=== PATIENT | female | born 1935 | race Caucasian/White ===

== ENCOUNTER 2017-11-24 19:01 | Inpatient (IN) | payer MEDICARE, OTHER ==
[~2017-11-24] VITALS: Ht 157.5 cm; Wt 59.3 kg
[2017-11-24] MEDS: SODIUM CHLOR 0.9% 1000 ML INJ 1,000 ML IV SCH (01:00)
[2017-11-24 19:12] VITALS: BP 135/62; PULSE 93; RESP 20; O2SAT 94
--- NOTE | 2017-11-24 19:52 | PD ---
HPI Chief Complaint: Fever Time Seen by Provider: 19:19 Travel History International Travel<30 days: No Contact w/Intl Traveler<30days: No Traveled to known affect area: No History of Present Illness HPI Patient is an 82-year-old female coming from a [facility] WITH PMH of HTN, DM and Dementia .. . she's been having weakness tiredness fever and cough for the last few days. Patient is a good historian reports feeling not well for the last 5 days. She says she has a sore throat feels her throat is very dry she's had a mild cough. PFSH Past Medical History Cardiovascular Problems: Yes Diabetes: Yes Respiratory: Yes Social History Tobacco Use: No Substance Use: No Allergies-Medications (Allergen,Severity, Reaction): Coded Allergies: No Known Allergies (Verified Allergy, Unknown, 11/24/17) Reported Meds & Prescriptions Reported Meds & Active Scripts Active Reported Tramadol (Tramadol HCl) 50 Mg Tab 50 Mg PO Q4H PRN Cough Syrup (Guaifenesin) 100 Mg/5 Ml Liquid Nitroglycerin SL (Nitroglycerin) 0.4 Mg Subl 0.4 Mg SL DIRECTED PRN ONE TABLET UNDER THE TONGUE NEEDED FOR CHEST PAIN, MAY REPEAT EVERY FIVE MINUTES FOR A TOTAL OF 3 DOSES OR CALL 911 IF NO RELIEF Tylenol (Acetaminophen) 325 Mg Tab 325 Mg PO Q4H PRN Gabapentin 300 Mg Cap 300 Mg PO BID Lantus Inj (Insulin Glargine) 1,000 Unit/10 Ml Vial 26 Units SQ HS Lovastatin 10 Mg Tab 10 Mg PO DAILY Plavix (Clopidogrel Bisulfate) 75 Mg Tab 75 Mg PO DAILY Sertraline (Sertraline HCl) 50 Mg Tab 50 Mg PO DAILY Furosemide 20 Mg Tab 20 Mg PO DAILY Potassium Chloride ER (Potassium Chloride) 10 Meq Tab 10 Meq PO DAILY Omeprazole 20 Mg Tab 20 Mg PO DAILY Review of Systems Except as stated in HPI: all other systems reviewed are Neg General / Constitutional: Positive: Fever Musculoskeletal: Positive: Weakness (GENERALIZED WEAKNESS FEVER LISTLESS) Physical Exam Narrative GENERAL: AWAKE ALERT APPEARS TO BE A GOOD HISTORIAN SKIN: Warm and dry. HEAD: Atraumatic. Normocephalic. EYES: Pupils equal and round. No scleral icterus. No injection or drainage. ENT: No nasal bleeding or discharge. Mucous membranes pink and moist. NECK: Trachea midline. No JVD. CARDIOVASCULAR: Regular rate and rhythm. RESPIRATORY: No accessory muscle use. DECREASED BREATH SOUND IN RIGHT LOWER LUNG AND BASIALR CRACKLES GASTROINTESTINAL: Abdomen soft, non-tender, nondistended. Hepatic and splenic margins not palpable. MUSCULOSKELETAL: Extremities without clubbing, cyanosis, or edema. No obvious deformities. NEUROLOGICAL: Awake and alert. No obvious cranial nerve deficits. Motor grossly within normal limits. Five out of 5 muscle strength in the arms and legs. Normal speech. PSYCHIATRIC: Appropriate mood and affect; insight and judgment normal. Data Data Last Documented VS Vital Signs Date Time Temp Pulse Resp B/P (MAP) Pulse Ox O2 Delivery O2 Flow Rate FiO2 11/24/17 20:12 93 Nasal Cannula 3.00 11/24/17 20:12 92 20 135/62 (86) Orders Orders Complete Blood Count With Diff (11/24/17 19:19) Comprehensive Metabolic Panel (11/24/17 19:19) Ckmb (Isoenzyme) Profile (11/24/17 19:19) Troponin I (11/24/17 19:19) Lipase (11/24/17 19:19) Chest, Pa & Lat (11/24/17 19:19) Vancomycin Inj (Vancomycin Inj) (11/24/17 20:15) Piperacil-Tazo 3.375 Gm Premix (Zosyn 3. (11/24/17 20:15) Albuterol-Ipratropium Neb (Duoneb Neb) (11/24/17 20:15) Sodium Chlor 0.9% 1000 Ml Inj (Ns 1000 M (11/24/17 20:15) Influenzae A/B Antigen (11/24/17 20:40) Aspirin Chew (Aspirin Chew) (11/24/17 21:45) Nitroglycerin 2% Oint (Nitroglycerin 2% (11/24/17 21:45) Heparin Inj (Heparin Inj) (11/24/17 21:45) Heparin Inj (Heparin Inj) (11/25/17 03:45) Heparin Inj (Heparin Inj) (11/25/17 03:45) Heparin-D5w 25,000 U/250 Ml (Heparin-D5w (11/24/17 21:45) Act Partial Throm Time (Ptt) (11/24/17 21:39) Prothrombin Time / Inr (Pt) (11/24/17 21:39) Act Partial Throm Time (Ptt) (11/25/17 04:39) Occult Blood (Hemoccult) Stool (11/24/17 21:39) Admit Order (Ed Use Only) (11/24/17 ) Labs Laboratory Tests Test 11/24/17 19:30 11/24/17 21:30 White Blood Count 23.6 TH/MM3 Red Blood Count 4.16 MIL/MM3 Hemoglobin 13.0 GM/DL Hematocrit 38.3 % Mean Corpuscular Volume 92.1 FL Mean Corpuscular Hemoglobin 31.2 PG Mean Corpuscular Hemoglobin Concent 33.9 % Red Cell Distribution Width 14.2 % Platelet Count 528 TH/MM3 Mean Platelet Volume 7.7 FL Neutrophils (%) (Auto) 83.7 % Lymphocytes (%) (Auto) 9.2 % Monocytes (%) (Auto) 6.9 % Eosinophils (%) (Auto) 0.0 % Basophils (%) (Auto) 0.2 % Neutrophils # (Auto) 19.8 TH/MM3 Lymphocytes # (Auto) 2.2 TH/MM3 Monocytes # (Auto) 1.6 TH/MM3 Eosinophils # (Auto) 0.0 TH/MM3 Basophils # (Auto) 0.0 TH/MM3 CBC Comment DIFF FINAL Differential Comment Blood Urea Nitrogen 12 MG/DL Creatinine 0.81 MG/DL Random Glucose 116 MG/DL Total Protein 6.8 GM/DL Albumin 2.2 GM/DL Calcium Level 8.3 MG/DL Alkaline Phosphatase 111 U/L Aspartate Amino Transf (AST/SGOT) 9 U/L Alanine Aminotransferase (ALT/SGPT) 11 U/L Total Bilirubin 0.7 MG/DL Sodium Level 129 MEQ/L Potassium Level 3.5 MEQ/L Chloride Level 91 MEQ/L Carbon Dioxide Level 27.2 MEQ/L Anion Gap 11 MEQ/L Estimat Glomerular Filtration Rate 68 ML/MIN Total Creatine Kinase 40 U/L Troponin I 0.25 NG/ML Lipase 64 U/L Prothrombin Time 11.8 SEC Prothromb Time International Ratio 1.2 RATIO Activated Partial Thromboplast Time 33.2 SEC MDM Medical Decision Making Medical Screen Exam Complete: Yes Emergency Medical Condition: Yes Differential Diagnosis FEVER FUO, SEPSIS OF VIRAL ILLNESS VS SEPSIS FROM PNA OR UTI , OTHER Narrative Course FLUID RESUSITATION INITIATED TYLENOL AND CXRAY LARGE RIGHT RML AND RLL PNA VANCO ZOSYN, THEN TROP RETURNS ELEVATED AND SHE IS GIVEN ASA AND NITRO AND ADMITTED TO MEDICAL SERVICE TELE , FOR SEPSIS DE NON STEMI AND PNA Diagnosis Primary Impression: NSTEMI (non-ST elevated myocardial infarction) Additional Impression: PNA (pneumonia) Qualified Codes: J18.1 - Lobar pneumonia, unspecified organism Joe Carty MD Nov 24, 2017 19:52
--- NOTE | 2017-11-24 20:06 | RADRPT ---
EXAM DATE/TIME: 11/24/2017 19:40 [facility] COMPARISON: No previous studies available for comparison. INDICATIONS : Fever. MEDICAL HISTORY : None. SURGICAL HISTORY : None. ENCOUNTER: Initial ACUITY: 3 days PAIN SCORE: 0/10 LOCATION: Bilateral chest FINDINGS: There is patchy infiltrates involving the right lung base. The left lung is grossly clear. The heart size is within normal limits. No definite pleural effusions. There is elevation of the right hemidiap hragm. There is an old healed right-sided rib fractures. CONCLUSION: Patchy diffuse infiltrate involving the right mid to right lower lung. This is suggestive of pneumoni a. Bernard Serrano MD on November 24, 2017 at 20:04 Board Certified Radiologist. This report was verified electronically.
[2017-11-24 20:12] VITALS: BP 135/62; PULSE 92; RESP 20; O2SAT 93
[2017-11-24] MEDS ORDERED: SODIUM CHLOR 0.9% 1000 ML INJ 1,000 ML IV ONE (20:15)
[2017-11-24] MEDS ORDERED: RESP: ALBUTEROL 2.5 MG/IPRATROPIUM 0.5 MG NEB (SCH) NEB ONE (20:15)
[2017-11-24] MEDS ORDERED: VANCOMYCIN INJ 1,000 MG in SODIUM CHLOR 0.9% 250 ML INJ 250 ML IV ONE (20:15)
[2017-11-24] MEDS ORDERED: PIPERACIL-TAZO 3.375 GM PREMIX 50 ML IV ONE (20:15)
[2017-11-24 21:02] LABS: AUTOMATED NEUTROPHIL # 19.8 TH/MM3 (1.8-7.7); BASOPHIL % 0.2 % (0.0-2.0); HEMATOCRIT 38.3 % (35.0-46.0); LYMPH % 9.2 % (9.0-44.0); LYMPHOCYTE # 2.2 TH/MM3 (1.0-4.8); MEAN CELL VOLUME 92.1 FL (80.0-100.0); MEAN CORPUSCULAR HEMOGLOBIN 31.2 PG (27.0-34.0); MEAN CORPUSCULAR HGB CONC 33.9 % (32.0-36.0); MEAN PLATELET VOLUME 7.7 FL (7.0-11.0); MONO % 6.9 % (0.0-8.0); MONOCYTE # 1.6 TH/MM3 (0-0.9); NEUT % 83.7 % (16.0-70.0); PLATELET COUNT 528 TH/MM3 (150-450); RED BLOOD COUNT 4.16 MIL/MM3 (4.00-5.30); RED CELL DISTRIBUTION WIDTH 14.2 % (11.6-17.2); WHITE BLOOD COUNT 23.6 TH/MM3 (4.0-11.0)
[2017-11-24 21:19] LABS: ALBUMIN 2.2 GM/DL (3.4-5.0); AST (GOT) 9 U/L (15-37); BICARBONATE 27.2 MEQ/L (21.0-32.0); BLOOD UREA NITROGEN 12 MG/DL (7-18); CALCIUM 8.3 MG/DL (8.5-10.1); CHLORIDE 91 MEQ/L (98-107); CREATININE 0.81 MG/DL (0.50-1.00); GLOMERULAR FILTRATION RATE 68 ML/MIN (>89); GLUCOSE,RANDOM 116 MG/DL (74-106); SODIUM (NA) 129 MEQ/L (136-145)
[2017-11-24 21:24] LABS: ALKALINE PHOSPHATASE 111 U/L (45-117); ALT (GPT) 11 U/L (10-53); TOTAL BILIRUBIN ADULT 0.7 MG/DL (0.2-1.0); TOTAL PROTEIN 6.8 GM/DL (6.4-8.2); TROPONIN I 0.25 NG/ML (0.02-0.05)
[2017-11-24] MEDS ORDERED: NITROGLYCERIN 2% OINT 1 GM PACKET TOPICAL ONE (21:45)
[2017-11-24] MEDS ORDERED: HEPARIN SODIUM - IV 10,000 UNITS/10 ML VIAL IV ONE (21:45)
[2017-11-24] MEDS ORDERED: ASPIRIN 81 MG CHEW TAB CHEW ONE (21:45)
[2017-11-24] MEDS ORDERED: SODIUM CHLORIDE 0.9% FLUSH 10 ML FLUSH IV FLUSH PRN (22:00)
[2017-11-24] MEDS ORDERED: NITROGLYCERIN 2% OINT 1 GM PACKET TOPICAL PRN (22:00)
[2017-11-24] MEDS ORDERED: BISACODYL 10 MG SUPP RECTAL PRN (22:00)
[2017-11-24] MEDS ORDERED: ACETAMINOPHEN/HYDROcodone 325 MG/5 MG TAB PO PRN (22:00)
[2017-11-24] MEDS ORDERED: SENNOSIDES 8.6 MG TAB PO PRN (22:00)
[2017-11-24] MEDS ORDERED: ACETAMINOPHEN 325 MG TAB PO PRN (22:00)
[2017-11-24] MEDS ORDERED: MAGNESIUM HYDROXIDE SUSP 30 ML CUP PO PRN (22:00)
[2017-11-24] MEDS ORDERED: Vancomycin Consult Pharmacy 1 EA OTHER SCH (22:00)
[2017-11-24] MEDS ORDERED: LACTULOSE SYRUP 20 GM/30 ML CUP PO PRN (22:00)
[2017-11-24] MEDS ORDERED: MORPHINE SULFATE 2 MG/ML INJ IV PUSH PRN (22:00)
--- NOTE | 2017-11-24 22:01 | HHI.HP ---
[facility] Jean Birch MD (Paul) Admission Diagnosis CP NSTEMI Diagnoses: (1) Sepsis Diagnosis: Principal (2) PNA (pneumonia) Diagnosis: Principal (3) NSTEMI (non-ST elevated myocardial infarction) Diagnosis: Principal (4) DM (diabetes mellitus) Diagnosis: Principal Travel History International Travel<30 Days: No Contact w/Intl Traveler <30 Da: No Traveled to Known Affected Are: No History of Present Illness This is an 82-year-old female with a PMH of HTN, DM and Dementia who was sent to the ER from SNF secondary to generalized weakness, fever and confusion. Per patient, she's had progressive weakness/fatigue for 4-5 days w/ associated non- productive cough. Unsure if she's had fever, however SNF records indicate fever of 102.0. No c/o chest pain or SOB. On arrival, BP 135/62, HR 93, O2 sat 94% on RA. WBC 23.6. Na 129. 468. Troponin 0.25. INR 1.2. CXR patchy diffuse infiltrate of right mid to right lower lung suggestive of pneumonia. S/ p Vanc/Zosyn and started on Heparin gtt in ER. Review of Systems Except as stated in HPI: all other systems reviewed are Neg ROS: 14 point review of systems otherwise negative. Past Family Social History Past Medical History PMH: HTN, DM and Dementia Past Surgical History PAST SURGICAL HISTORY: Hysterectomy Allergies: Coded Allergies: No Known Allergies (Verified Allergy, Unknown, 11/24/17) Family History PAST FAMILY HISTORY: Reviewed. No h/o DM or CAD Social History PAST SOCIAL HISTORY: Negative for alcohol, tobacco or drugs. Physical Exam Vital Signs Vital Signs Date Time Temp Pulse Resp B/P (MAP) Pulse Ox O2 Delivery O2 Flow Rate FiO2 11/24/17 20:12 93 Nasal Cannula 3.00 11/24/17 20:12 92 20 135/62 (86) 93 Nasal Cannula 11/24/17 19:12 93 20 135/62 (86) 94 Physical Exam PE: GENERAL: Elderly white female in no acute distress. HEENT: PERRLA, EOMI. No scleral icterus or conjunctival pallor. No lid lag or facial droop. CARDIOVASCULAR: Regular rate and rhythm. No obvious murmurs to auscultation. No chest tenderness to palpation. RESPIRATORY: No obvious rhonchi or wheezing. Clear to auscultation. Breath sounds equal bilaterally. GASTROINTESTINAL: Abdomen soft, non-tender, nondistended. BS normal. MUSCULOSKELETAL: Extremities without clubbing, cyanosis, or edema. No obvious deformities. NEUROLOGICAL: Awake, alert and oriented x4. No focal neurologic deficits. Moving both upper and lower extremities spontaneously. Laboratory Laboratory Tests Test 11/24/17 19:30 11/24/17 21:30 White Blood Count 23.6 Red Blood Count 4.16 Hemoglobin 13.0 Hematocrit 38.3 Mean Corpuscular Volume 92.1 Mean Corpuscular Hemoglobin 31.2 Mean Corpuscular Hemoglobin Concent 33.9 Red Cell Distribution Width 14.2 Platelet Count 528 Mean Platelet Volume 7.7 Neutrophils (%) (Auto) 83.7 Lymphocytes (%) (Auto) 9.2 Monocytes (%) (Auto) 6.9 Eosinophils (%) (Auto) 0.0 Basophils (%) (Auto) 0.2 Neutrophils # (Auto) 19.8 Lymphocytes # (Auto) 2.2 Monocytes # (Auto) 1.6 Eosinophils # (Auto) 0.0 Basophils # (Auto) 0.0 CBC Comment DIFF FINAL Differential Comment Blood Urea Nitrogen 12 Creatinine 0.81 Random Glucose 116 Total Protein 6.8 Albumin 2.2 Calcium Level 8.3 Alkaline Phosphatase 111 Aspartate Amino Transf (AST/SGOT) 9 Alanine Aminotransferase (ALT/SGPT) 11 Total Bilirubin 0.7 Sodium Level 129 Potassium Level 3.5 Chloride Level 91 Carbon Dioxide Level 27.2 Anion Gap 11 Estimat Glomerular Filtration Rate 68 Total Creatine Kinase 40 Troponin I 0.25 Lipase 64 Date/Time Source Procedure Growth Status 11/24/17 21:25 Nasal Aspirate Influenza Types A,B Antigen (ELLA) - Final NEGATIVE FOR FLU A AND B ANTIGEN.... Complete Result Diagram: 11/24/17192911/24/171929 Caprini VTE Risk Assessment Caprini VTE Risk Assessment: Mod/High Risk (score >= 2) Caprini Risk Assessment Model Point Value = 1 Point Value = 2 Point Value = 3 Point Value = 5 Age 41-60 Minor surgery BMI > 25 kg/m2 Swollen legs Varicose veins or History of unexplained or recurrent spontaneous Oral contraceptives or hormone replacement Sepsis (< 1 month) Serious lung disease, including pneumonia (< 1 month) Abnormal pulmonary function Acute myocardial infarction Congestive heart failure (< 1 month) History of inflammatory bowel disease Medical patient at bed rest Age 61-74 Arthroscopic surgery Major open surgery (> 45 min) Laparoscopic surgery (> 45 min) Malignancy Confined to bed (> 72 hours) Immobilizing plaster cast Central venous access Age >= 75 History of VTE Family history of VTE Factor V Leiden Prothrombin [id number] Lupus anticoagulant Anticardiolipin antibodies Elevated serum homocysteine Heparin-induced thrombocytopenia Other congenital or acquired thrombophilia Stroke (< 1 month) Elective arthroplasty Hip, pelvis, or leg fracture Acute spinal cord injury (< 1 month) Prophylaxis Regimen Total Risk Factor Score Risk Level Prophylaxis Regimen 0-1 Low Early ambulation 2 Moderate Order ONE of the following: *Sequential Compression Device (SCD) *Heparin 5000 units SQ BID 3-4 Higher Order ONE of the following medications: *Heparin 5000 units SQ TID *Enoxaparin/Lovenox 40 mg SQ daily (WT < 150 kg, CrCl > 30 mL/min) *Enoxaparin/Lovenox 30 mg SQ daily (WT < 150 kg, CrCl > 10-29 mL/min) *Enoxaparin/Lovenox 30 mg SQ BID (WT < 150 kg, CrCl > 30 mL/min) AND/OR *Sequential Compression Device (SCD) 5 or more Highest Order ONE of the following medications: *Heparin 5000 units SQ TID (Preferred with Epidurals) *Enoxaparin/Lovenox 40 mg SQ daily (WT < 150 kg, CrCl > 30 mL/min) *Enoxaparin/Lovenox 30 mg SQ daily (WT < 150 kg, CrCl > 10-29 mL/min) *Enoxaparin/Lovenox 30 mg SQ BID (WT < 150 kg, CrCl > 30 mL/min) AND *Sequential Compression Device (SCD) Assessment and Plan Problem List: (1) Sepsis ICD Code: A41.9 - Sepsis, unspecified organism (2) PNA (pneumonia) ICD Code: J18.9 - Pneumonia, unspecified organism (3) NSTEMI (non-ST elevated myocardial infarction) ICD Code: I21.4 - Non-ST elevation (NSTEMI) myocardial infarction (4) DM (diabetes mellitus) ICD Code: E11.9 - Type 2 diabetes mellitus without complications Assessment and Plan A/P: 1. Sepsis: HR 90, WBC 26, Source-PNA. Check Blood Cultures, check Lactic Acid. S/p Vanc/Zosyn in ER, continue w/ IV Abx. IVF for hydration. 2. PNA: c/o cough/fever. WBC 26 as above, CXR w/ RLL/RML PNA. Check Sputum Cultures, continue w/ IV Abx as above. DuoNeb prn if needed. 3. NSTEMI: Trop 0.25, no c/o chest pain at this time. Started on Heparin gtt , continue Heparin, check serial cardiac enzymes for trend. Consult Cardiology for further evaluation/recommendations. 4. DM: Sliding scale w/ Accu-Cheks. Resume home Insulin. 5. DVT Prophylaxis: Heparin gtt 6. Social work for d/c planning as needed. 7. Case discussed w/ ER physician at length, labs/records/imaging reviewed by me. Physician Certification 2 Midnight Certification Type: Admission for Inpatient Services Order for Inpatient Services The services are ordered in accordance with Medicare regulations or non- Medicare payer requirements, as applicable. In the case of services not specified as inpatient-only, they are appropriately provided as inpatient services in accordance with the 2-midnight benchmark. Estimated LOS (days): 2 days is the estimated time the patient will need to remain in the hospital, assuming treatment plan goals are met and no additional complications. Post-Hospital Plan: Not yet determined Sabiha Cunningham MD Nov 24, 2017 22:01
[2017-11-24 22:05] LABS: INTERNATIONAL NORMALIZED RATIO 1.2 RATIO; PROTHROMBIN TIME - PATIENT 11.8 SEC (9.8-11.6)
[2017-11-24] MEDS: HEPARIN-D5W 25,000 U/250 ML 250 ML IV PRN (22:23)
[2017-11-24] MEDS ORDERED: VANCOMYCIN 500 MG/NS 100 ML IV ONE ×2 (22:45)
[2017-11-24 22:47] VITALS: BP 120/59; PULSE 79; RESP 18; O2SAT 92
[2017-11-24] MEDS ORDERED: LANTUS2P SQ (23:03)
[2017-11-24] MEDS ORDERED: GABA300C5 PO (23:03)
[2017-11-24] MEDS ORDERED: FURO20TA PO (23:03)
[2017-11-24] MEDS ORDERED: OMEP20TA93 PO (23:03)
[2017-11-24] MEDS ORDERED: NITR1SUB3 SL (23:03)
[2017-11-24] MEDS ORDERED: POTA10TA2 PO (23:03)
[2017-11-24] MEDS ORDERED: LOVA10TA PO (23:03)
[2017-11-24] MEDS ORDERED: TYLE325T PO (23:03)
[2017-11-24] MEDS ORDERED: SERT-132 PO (23:03)
[2017-11-24] MEDS ORDERED: PLAV75TA29 PO (23:03)
[2017-11-24] MEDS ORDERED: TRAM50TA PO (23:03)
[2017-11-24] MEDS ORDERED: GUAI1SYP15 (23:03)
[2017-11-25] VITALS (21 sets, daily range): BP systolic 113–151; BP diastolic 47–62; PULSE 75–118; RESP 18–24; TEMP 98.1–99.1; O2SAT 2–99
[2017-11-25] MEDS ORDERED: GLUCAGON 1 MG/ML VIAL OTHER PRN
[2017-11-25] MEDS ORDERED: DEXTROSE 50% IN WATER 50 ML VIAL(D50) IV PUSH PRN
[2017-11-25] MEDS ORDERED: HEPARIN SODIUM - IV 10,000 UNITS/10 ML VIAL IV PRN ×2 (03:45)
[2017-11-25 05:13] LABS: AUTOMATED NEUTROPHIL # 17.1 TH/MM3 (1.8-7.7); BASOPHIL % 0.1 % (0.0-2.0); EOSINOPHIL % 0.1 % (0.0-4.0); HEMATOCRIT 35.6 % (35.0-46.0); HEMOGLOBIN 12.1 GM/DL (11.6-15.3); LYMPH % 9.8 % (9.0-44.0); LYMPHOCYTE # 2.1 TH/MM3 (1.0-4.8); MEAN CELL VOLUME 92.4 FL (80.0-100.0); MEAN CORPUSCULAR HEMOGLOBIN 31.4 PG (27.0-34.0); MEAN PLATELET VOLUME 7.1 FL (7.0-11.0); MONO % 8.6 % (0.0-8.0); MONOCYTE # 1.8 TH/MM3 (0-0.9); NEUT % 81.4 % (16.0-70.0); PLATELET COUNT 459 TH/MM3 (150-450); RED BLOOD COUNT 3.86 MIL/MM3 (4.00-5.30); RED CELL DISTRIBUTION WIDTH 13.9 % (11.6-17.2); WHITE BLOOD COUNT 21.1 TH/MM3 (4.0-11.0)
[2017-11-25 05:26] LABS: ALBUMIN 1.9 GM/DL (3.4-5.0); AST (GOT) 10 U/L (15-37); BICARBONATE 26.9 MEQ/L (21.0-32.0); BLOOD UREA NITROGEN 12 MG/DL (7-18); CALCIUM 7.9 MG/DL (8.5-10.1); CHLORIDE 97 MEQ/L (98-107); GLOMERULAR FILTRATION RATE 80 ML/MIN (>89); GLUCOSE,RANDOM 107 MG/DL (74-106); SODIUM (NA) 132 MEQ/L (136-145)
[2017-11-25 05:27] LABS: ALT (GPT) 9 U/L (10-53)
[2017-11-25 05:30] LABS: ALKALINE PHOSPHATASE 91 U/L (45-117); TOTAL BILIRUBIN ADULT 0.8 MG/DL (0.2-1.0); TOTAL PROTEIN 6.4 GM/DL (6.4-8.2); TROPONIN I 0.19 NG/ML (0.02-0.05)
[2017-11-25] MEDS: SODIUM CHLOR 0.9% 1000 ML INJ 1,000 ML IV SCH ×2 (07:57→17:12)
[2017-11-25] MEDS: INSULIN ASPART SUPPLEMENTAL SCALE SQ SCH ×4 (08:31→21:00)
[2017-11-25] MEDS: DOCUSATE SODIUM 50 MG/SENNA 8.6 MG TAB PO SCH ×2 (09:22→19:53)
[2017-11-25] MEDS: PANTOPRAZOLE SOD 20 MG DELAYED RELEASE TAB PO SCH (09:22)
[2017-11-25] MEDS: SERTRALINE HCL 50 MG TAB PO SCH (09:22)
[2017-11-25] MEDS: GABAPENTIN 300 MG CAP PO SCH ×2 (09:22→19:53)
[2017-11-25] MEDS: SODIUM CHLORIDE 0.9% FLUSH 10 ML FLUSH IV FLUSH SCH ×2 (09:24→19:52)
[2017-11-25] MEDS: CEFEPIME INJ 1,000 MG in SODIUM CHLORIDE 0.9% INJ 100 ML IV SCH ×2 (09:24→19:52)
[2017-11-25] MEDS: ONDANSETRON HCL 4 MG/2 ML VIAL IVP PRN (10:35)
[2017-11-25] MEDS: guaiFENesin SOLUTION 200 MG/10 ML CUP PO PRN ×2 (11:15→19:52)
[2017-11-25] MEDS: RESP: ALBUTEROL 2.5 MG/3 ML NEB (PRN) NEB (11:32)
--- NOTE | 2017-11-25 14:05 | RADRPT ---
EXAM DATE/TIME: 11/25/2017 13:35 [facility] COMPARISON: CHEST PA & LAT, November 24, 2017, 19:40. INDICATIONS : Cough for 3 days MEDICAL HISTORY : None. SURGICAL HISTORY : None. ENCOUNTER: Initial ACUITY: 3 days PAIN SCORE: 0/10 LOCATION: Bilateral chest FINDINGS: Mild atherosclerotic changes are noted of the aorta with normal size heart. Left lung remains essenti ally clear. Right patchy diffuse airspace disease infiltrate process in the mid and basilar lung fiel d slightly accentuated due to decreased inspiration. CONCLUSION: Persistent right mid and basilar patchy alveolar airspace disease not significantly changed allowing for differences in inspiratory effort Augustus Alvarenga MD on November 25, 2017 at 14:01 Board Certified Radiologist. This report was verified electronically.
--- NOTE | 2017-11-25 15:22 | MB ---
cc: TJ ROJAS M.D. DATE OF CONSULTATION: 11/25/2017. REASON FOR CONSULTATION: Sepsis. Chest pain. HISTORY OF PRESENT ILLNESS: Mrs. Paul is an 82-year-old female with history of high blood pressure, diabetes mellitus, dementia who has been living in an assisted living facility. She was brought to the emergency room due to nonproductive cough and fever. She refers also some chest pain. She is a chronic smoker. Antibiotic was initiated. Troponin increased. There are x-ray changes. I was consulted for further evaluation and management. The chart was reviewed. The patient was evaluated. ALLERGIES: NONE. SOCIAL HISTORY: She mentioned she is still smoking a pack of cigarettes a day. FAMILY HISTORY: Noncontributory to her current medical condition. MEDICATIONS: Currently she is on: 1. Cefepime 1 gram q. 12 hours. 2. Heparin IV. 3. Piperacillin / tazobactam. 4. Vancomycin. 5. [place]. 6. Tylenol. 7. Albuterol. 8. Aspirin 325 milligrams a day. 9. Neurontin 300 milligrams twice a day. 10. Reglan. 11. Zoloft 50 milligrams a day. REVIEW OF SYSTEMS: Currently she refers no chest pain. No chest discomfort. No vomiting. No fever. PHYSICAL EXAMINATION: GENERAL: She is alert and oriented in person and space. VITAL SIGNS: Blood pressure is 113/47, pulse 70, respiratory rate 18. LUNGS: Ventilated. CARDIOVASCULAR: S1-S2. Regular No gallop. ABDOMEN: Abdomen soft, no mass. No bruits. EXTREMITIES: No edema. EKGS: Electrocardiogram shows sinus rhythm. No acute S-T and T-wave changes. LABORATORY DATA: Hemoglobin 12.1, white blood cell 21.1 coming down from 23.6, potassium is 3.4, creatinine is 0.70. Troponin is 0.9 and trending down from 0.25. INR is 1.2. ASSESSMENT AND RECOMMENDATIONS: Mrs. Paul is a chronic smoker. She most likely has uncompensated COPD and pneumonia. Chest x-ray shows right lower lobe pneumonia. She is on IV antibiotics. There are no acute S-T wave changes on electrocardiogram. She refers no chest pain on activity. At this point, my recommendation is to continue with current management. When the patient is stable, then I will consider a nuclear stress study. The case was discussed with the patient. MD LAZ Kyle/NESS /1:39 PM /3:13 PM
--- NOTE | 2017-11-25 15:42 | HHI.PR ---
Subjective Remarks Intermittent coughing with respiratory distress and relative hypoxia. Without oxygen patient would be hypoxic. No fevers. Sepsis has resolved. Objective Vital Signs Date Time Temp Pulse Resp B/P (MAP) Pulse Ox O2 Delivery O2 Flow Rate FiO2 11/25/17 11:37 Nasal Cannula 2.00 11/25/17 06:00 75 11/25/17 05:00 77 11/25/17 04:00 98.1 80 18 113/47 (69) 99 11/25/17 04:00 80 11/25/17 04:00 Nasal Cannula 2.00 11/25/17 03:00 77 11/25/17 02:00 76 11/25/17 01:00 80 11/25/17 00:00 80 11/25/17 00:00 98.3 80 20 127/52 (77) 96 11/24/17 23:43 11/24/17 22:47 79 18 120/59 (79) 92 Nasal Cannula 3.00 11/24/17 20:12 93 Nasal Cannula 3.00 11/24/17 20:12 92 20 135/62 (86) 93 Nasal Cannula 11/24/17 19:12 93 20 135/62 (86) 94 I/O 11/24/17 11/24/17 11/24/17 11/25/17 11/25/17 11/25/17 07:00 15:00 23:00 07:00 15:00 23:00 Intake Total 1300 ml 300 ml Balance 1300 ml 300 ml Intake Oral 240 ml IV Total 1300 ml 60 ml # Voids 3 # Bowel Movements 1 Result Diagram: 11/25/17 0451 11/25/17 0451 Objective Remarks GENERAL: NAD, A&Ox3 HEAD: Normocephalic. NECK: Supple, trachea midline. No lymphadenopathy. EYES: No scleral icterus. No injection or drainage. CARDIOVASCULAR: Regular rate and rhythm without murmurs, gallops, or rubs. RESPIRATORY: Breath sounds equal bilaterally. No accessory muscle use. Bilateral rhonchi. GASTROINTESTINAL: Abdomen soft, non-tender, nondistended. MUSCULOSKELETAL: No cyanosis, or edema. SKIN: Warm and dry. NEURO: No focal neurological deficitis. A/P Problem List: (1) PNA (pneumonia) ICD Code: J18.9 - Pneumonia, unspecified organism (2) NSTEMI (non-ST elevated myocardial infarction) ICD Code: I21.4 - Non-ST elevation (NSTEMI) myocardial infarction (3) DM (diabetes mellitus) ICD Code: E11.9 - Type 2 diabetes mellitus without complications (4) Sepsis ICD Code: A41.9 - Sepsis, unspecified organism (5) Encephalopathy ICD Code: G93.40 - Encephalopathy, unspecified Assessment and Plan 82-year-old female admitted secondary to pneumonia with sepsis. Possible NSTEMI present. Sepsis Resolved Monitor for any recurrence Community-acquired pneumonia Continue oxygen as needed Continue vancomycin Continue Zosyn Follow CBC Continue breathing treatments as needed Possible NSTEMI Potential elevation in troponin related to pneumonia Cardiology consulted and following Diabetes mellitus type 2 Follow blood sugars Insulin sliding scale Diabetic diet DVT prophylaxis Heparin Sha Monaco MD Nov 25, 2017 15:42
[2017-11-25] MEDS: VANCOMYCIN 1 GM/200 ML PREMIX IV SCH (19:51)
[2017-11-25] MEDS: INSULIN DETEMIR 100 UNITS/ML VIAL SQ SCH (19:53)
[2017-11-25] MEDS: guaiFENesin E.R. 600 MG TAB PO SCH (19:53)
--- NOTE | 2017-11-25 23:44 | EKG ---
Date Performed: 11/24/2017 Time Performed: 21:41:08 PTAGE: 82 years EKG: Sinus rhythm NORMAL ECG NO PREVIOUS TRACING DOCTOR: Feroz Chapman Interpretating Date/Time 11/25/2017 23:42:23
[2017-11-26] VITALS (20 sets, daily range): BP systolic 105–147; BP diastolic 48–59; PULSE 72–124; RESP 18–22; TEMP 98.1–98.6; O2SAT 85–98
[2017-11-26 03:09] LABS: AUTOMATED NEUTROPHIL # 15.9 TH/MM3 (1.8-7.7); BASOPHIL % 0.2 % (0.0-2.0); HEMATOCRIT 34.9 % (35.0-46.0); HEMOGLOBIN 11.7 GM/DL (11.6-15.3); LYMPH % 9.4 % (9.0-44.0); LYMPHOCYTE # 1.8 TH/MM3 (1.0-4.8); MEAN CELL VOLUME 93.6 FL (80.0-100.0); MEAN CORPUSCULAR HEMOGLOBIN 31.5 PG (27.0-34.0); MEAN CORPUSCULAR HGB CONC 33.6 % (32.0-36.0); MEAN PLATELET VOLUME 7.3 FL (7.0-11.0); MONO % 7.4 % (0.0-8.0); MONOCYTE # 1.4 TH/MM3 (0-0.9); PLATELET COUNT 474 TH/MM3 (150-450); RED BLOOD COUNT 3.73 MIL/MM3 (4.00-5.30); WHITE BLOOD COUNT 19.1 TH/MM3 (4.0-11.0)
[2017-11-26 03:24] LABS: ALBUMIN 1.7 GM/DL (3.4-5.0); AST (GOT) 13 U/L (15-37); BICARBONATE 26.4 MEQ/L (21.0-32.0); BLOOD UREA NITROGEN 10 MG/DL (7-18); CALCIUM 7.6 MG/DL (8.5-10.1); CHLORIDE 101 MEQ/L (98-107); CREATININE 0.62 MG/DL (0.50-1.00); GLOMERULAR FILTRATION RATE 92 ML/MIN (>89); GLUCOSE,RANDOM 189 MG/DL (74-106); SODIUM (NA) 133 MEQ/L (136-145)
[2017-11-26 03:27] LABS: ALKALINE PHOSPHATASE 80 U/L (45-117); ALT (GPT) 9 U/L (10-53); TOTAL BILIRUBIN ADULT 0.6 MG/DL (0.2-1.0); TOTAL PROTEIN 5.7 GM/DL (6.4-8.2)
[2017-11-26] MEDS: SODIUM CHLOR 0.9% 1000 ML INJ 1,000 ML IV SCH ×3 (03:57→23:57)
[2017-11-26] MEDS: INSULIN ASPART SUPPLEMENTAL SCALE SQ SCH ×4 (08:00→21:10)
[2017-11-26] MEDS: CEFEPIME INJ 1,000 MG in SODIUM CHLORIDE 0.9% INJ 100 ML IV SCH (09:48)
[2017-11-26] MEDS: PANTOPRAZOLE SOD 20 MG DELAYED RELEASE TAB PO SCH (09:48)
[2017-11-26] MEDS: guaiFENesin E.R. 600 MG TAB PO SCH ×2 (09:48→19:58)
[2017-11-26] MEDS: SERTRALINE HCL 50 MG TAB PO SCH (09:49)
[2017-11-26] MEDS: GABAPENTIN 300 MG CAP PO SCH ×2 (09:49→19:58)
[2017-11-26] MEDS: DOCUSATE SODIUM 50 MG/SENNA 8.6 MG TAB PO SCH ×2 (09:49→19:58)
[2017-11-26] MEDS: SODIUM CHLORIDE 0.9% FLUSH 10 ML FLUSH IV FLUSH SCH ×2 (09:50→19:57)
--- NOTE | 2017-11-26 10:20 | HHI.PR ---
Subjective Remarks Story distress occurred again this morning. ABG was obtained and showed hypercarbia with respiratory acidosis versus mixed acidosis. BiPAP has been initiated. Patient is more comfortable on BiPAP. Recent chest x-ray shows no mucus plugging. Objective Vital Signs Date Time Temp Pulse Resp B/P (MAP) Pulse Ox O2 Delivery O2 Flow Rate FiO2 11/26/17 09:16 96 BiPAP 50 11/26/17 09:00 96 50 11/26/17 06:00 79 11/26/17 05:00 77 11/26/17 04:00 72 11/26/17 04:00 98.6 72 18 120/53 (75) 93 11/26/17 04:00 Nasal Cannula 2.00 11/26/17 03:00 74 11/26/17 02:00 76 11/26/17 01:00 79 11/26/17 00:00 Nasal Cannula 2.00 11/26/17 00:00 79 11/26/17 00:00 98.2 79 18 120/48 (72) 92 11/25/17 23:00 80 11/25/17 22:00 76 11/25/17 21:00 81 11/25/17 20:00 Nasal Cannula 2.00 11/25/17 20:00 98.7 84 18 122/56 (78) 92 11/25/17 20:00 84 11/25/17 16:00 99.1 84 20 127/55 (79) 95 11/25/17 13:00 96 11/25/17 12:00 99 11/25/17 11:37 Nasal Cannula 2.00 11/25/17 11:15 98.6 113 24 151/62 (91) 92 11/25/17 11:00 118 I/O 11/25/17 11/25/17 11/25/17 11/26/17 11/26/17 11/26/17 07:00 15:00 23:00 07:00 15:00 23:00 Intake Total 300 ml 1000 ml 522 ml 540 ml Balance 300 ml 1000 ml 522 ml 540 ml Intake Oral 240 ml 360 ml 240 ml IV Total 60 ml 1000 ml 162 ml 300 ml # Voids 3 2 2 # Bowel Movements 1 0 0 Result Diagram: 11/26/1724611/26/17246 Objective Remarks GENERAL: NAD, A&Ox3 HEAD: Normocephalic. NECK: Supple, trachea midline. No lymphadenopathy. EYES: No scleral icterus. No injection or drainage. CARDIOVASCULAR: Regular rate and rhythm without murmurs, gallops, or rubs. RESPIRATORY: Breath sounds equal bilaterally. No accessory muscle use. Bilateral rhonchi. GASTROINTESTINAL: Abdomen soft, non-tender, nondistended. MUSCULOSKELETAL: No cyanosis, or edema. SKIN: Warm and dry. NEURO: No focal neurological deficitis. A/P Problem List: (1) PNA (pneumonia) ICD Code: J18.9 - Pneumonia, unspecified organism (2) NSTEMI (non-ST elevated myocardial infarction) ICD Code: I21.4 - Non-ST elevation (NSTEMI) myocardial infarction (3) DM (diabetes mellitus) ICD Code: E11.9 - Type 2 diabetes mellitus without complications (4) Sepsis ICD Code: A41.9 - Sepsis, unspecified organism (5) Encephalopathy ICD Code: G93.40 - Encephalopathy, unspecified Assessment and Plan 82-year-old female admitted secondary to pneumonia with sepsis. Possible NSTEMI present. Respiratory distress this morning. BiPAP initiated. Recheck ABG in several hours. Continue schedule duo nebs and Mucomyst. Continue to treat pneumonia. Systemic steroids initiated to help assist with inflammation (she is past the acute infectious phase of her pneumonia and out of sepsis). Sepsis Resolved Monitor for any recurrence Community-acquired pneumonia COPD Continue oxygen as needed Continue vancomycin Continue Zosyn Follow CBC Continue breathing treatments as needed Possible NSTEMI Potential elevation in troponin related to pneumonia Cardiology consulted and following Diabetes mellitus type 2 Follow blood sugars Insulin sliding scale Diabetic diet DVT prophylaxis Heparin Sha Monaco MD Nov 26, 2017 10:20
[2017-11-26] MEDS ORDERED: methylPREDNISolone SOD SUCC 40 MG/1 ML VIAL IV PUSH ONE (10:30)
[2017-11-26] MEDS: RESP: ALBUTEROL 2.5 MG/IPRATROPIUM 0.5 MG NEB (SCH) NEB ×4 (12:00→23:55)
[2017-11-26] MEDS: RESP: ACETYLCYSTEINE 20% 10 ML NEB NEB SCH ×2 (12:00→16:00)
--- NOTE | 2017-11-26 12:36 | HHI.PR ---
Subjective Remarks Tired Objective Vital Signs Date Time Temp Pulse Resp B/P (MAP) Pulse Ox O2 Delivery O2 Flow Rate FiO2 11/26/17 12:22 97 BiPAP 40 11/26/17 12:19 96 40 11/26/17 09:16 96 BiPAP 50 11/26/17 09:00 96 50 11/26/17 06:00 79 11/26/17 05:00 77 11/26/17 04:00 72 11/26/17 04:00 98.6 72 18 120/53 (75) 93 11/26/17 04:00 Nasal Cannula 2.00 11/26/17 03:00 74 11/26/17 02:00 76 11/26/17 01:00 79 11/26/17 00:00 Nasal Cannula 2.00 11/26/17 00:00 79 11/26/17 00:00 98.2 79 18 120/48 (72) 92 11/25/17 23:00 80 11/25/17 22:00 76 11/25/17 21:00 81 11/25/17 20:00 Nasal Cannula 2.00 11/25/17 20:00 98.7 84 18 122/56 (78) 92 11/25/17 20:00 84 11/25/17 16:00 99.1 84 20 127/55 (79) 95 11/25/17 13:00 96 I/O 11/25/17 11/25/17 11/25/17 11/26/17 11/26/17 11/26/17 07:00 15:00 23:00 07:00 15:00 23:00 Intake Total 300 ml 1000 ml 522 ml 540 ml Balance 300 ml 1000 ml 522 ml 540 ml Intake Oral 240 ml 360 ml 240 ml IV Total 60 ml 1000 ml 162 ml 300 ml # Voids 3 2 2 # Bowel Movements 1 0 0 Result Diagram: 11/26/1724611/26/17 0247 Imaging Alert, oriented, with a CPAP mask Lungs: ventilated Heart: S1, S2 regular Abdomen: soft, no mass Ext: no edema Last Impressions Chest X-Ray 11/25/17 0000 Signed Impressions: Service Date/Time: Saturday, November 25, 2017 13:35 - CONCLUSION: Persistent right mid and basilar patchy alveolar airspace disease not significantly changed allowing for differences in inspiratory effort Augustus Alvarenga MD Current Medications Medications (Trade) Dose Ordered Sig/Prema Route Start Time Stop Time Status Last Admin (Heparin Inj) 5,000 units UNSCH PRN IV 11/25/17 03:45 (Heparin Inj) 2,500 units UNSCH PRN IV 11/25/17 03:45 11/25/17 05:56 Heparin Sodium/ Dextrose 250 ml @ 8 mls/hr TITRATE PRN IV 11/24/17 21:45 11/24/17 22:23 Pharmacy Profile Note 0 ml @ 0 mls/hr UNSCH OTHER 11/24/17 22:00 Sodium Chloride 1,000 ml @ 100 mls/hr Q10H IV 11/24/17 21:57 11/25/17 17:12 (NS Flush) 2 ml UNSCH PRN IV FLUSH 11/24/17 22:00 (NS Flush) 2 ml BID IV FLUSH 11/25/17 09:00 11/25/17 19:52 (Zofran Inj) 4 mg Q6H PRN IVP 11/24/17 22:00 11/25/17 10:35 (Tylenol) 650 mg Q6H PRN PO 11/24/17 22:00 ([place] 5-325 Mg) 1 tab Q4H PRN PO 11/24/17 22:00 (Morphine Inj) 2 mg Q3H PRN IV PUSH 11/24/17 22:00 (Huma-Colace) 1 tab BID PO 11/25/17 09:00 11/26/17 09:49 (Milk Of Magnesia Liq) 30 ml Q12H PRN PO 11/24/17 22:00 (Senokot) 17.2 mg Q12H PRN PO 11/24/17 22:00 (Dulcolax Supp) 10 mg DAILY PRN RECTAL 11/24/17 22:00 (Lactulose Liq) 30 ml DAILY PRN PO 11/24/17 22:00 (Nitroglycerin 2% Oint) 0.5 inch Q6HR PRN TOPICAL 11/24/17 22:00 Vancomycin/Sodium Chloride 200 ml @ 200 mls/hr DAILY@2000 IV 11/25/17 20:00 11/25/17 19:51 Miscellaneous Information SPECIFIC LAB TO BE NELY... ONCE ONCE .XX 11/26/17 19:45 11/26/17 19:46 (D50w (Vial) Inj) 50 ml UNSCH PRN IV PUSH 11/25/17 00:00 (Glucagon Inj) 1 mg UNSCH PRN OTHER 11/25/17 00:00 (NovoLOG SUPPLEMENTAL SCALE) 1 ACHS SLIDING SCALE SQ 11/25/17 08:00 11/25/17 17:11 (Neurontin) 300 mg BID PO 11/25/17 09:00 11/26/17 09:49 (Levemir Inj) 26 units HS SQ 11/25/17 21:00 (Zoloft) 50 mg DAILY PO 11/25/17 09:00 11/26/17 09:49 (Protonix) 20 mg DAILY PO 11/25/17 09:00 11/26/17 09:48 (Robitussin Liq) 200 mg Q4H PRN PO 11/25/17 10:45 11/25/17 19:52 (Albuterol Neb) 2.5 mg Q4HR NEB PRN NEB 11/25/17 10:45 11/25/17 11:32 (Mucinex Er) 600 mg BID PO 11/25/17 21:00 11/26/17 09:48 (Duoneb Neb) 1 ampule Q4HR NEB NEB 11/26/17 12:00 11/26/17 12:00 (Mucomyst 20% Neb) 2 ml Q4HR NEB NEB 11/26/17 12:00 (SoluMEDROL INJ) 40 mg Q12HR IV PUSH 11/26/17 21:00 Cefepime HCl 2000 mg/Sodium Chloride 100 ml @ 200 mls/hr Q12H IV 11/26/17 21:00 Assessment and Plan Problem List: (1) Shortness of breath ICD Codes: R06.02 - Shortness of breath Plan: Respiratory failure CPAP mask Condition deteriorating On IV antibiotics (2) NSTEMI (non-ST elevated myocardial infarction) ICD Codes: I21.4 - Non-ST elevation (NSTEMI) myocardial infarction Plan: No chest pain reported Troponin continue to decrease Will be monitor for now (3) Sepsis ICD Codes: A41.9 - Sepsis, unspecified organism Plan: On IV antibiotic Elizabeth Betancourt MD Nov 26, 2017 12:36
[2017-11-26] MEDS ORDERED: PHARMACY ORDERED LAB ONE (19:45)
[2017-11-26] MEDS: VANCOMYCIN 1 GM/200 ML PREMIX IV SCH (19:56)
[2017-11-26] MEDS: CEFEPIME 2000 MG/NS 100 ML IV SCH ×2 (19:57)
[2017-11-26] MEDS: guaiFENesin SOLUTION 200 MG/10 ML CUP PO PRN (19:58)
[2017-11-26] MEDS: methylPREDNISolone SOD SUCC 40 MG/1 ML VIAL IV PUSH SCH (19:59)
[2017-11-26] MEDS: INSULIN DETEMIR 100 UNITS/ML VIAL SQ SCH (21:00)
[2017-11-26] MEDS: HEPARIN-D5W 25,000 U/250 ML 250 ML IV PRN (21:09)
[2017-11-26] MEDS: RESP: ACETYLCYSTEINE 20% 4 ML NEB NEB SCH (23:55)
[2017-11-27] VITALS (31 sets, daily range): BP systolic 112–154; BP diastolic 44–72; PULSE 62–94; RESP 18–30; TEMP 97.7–98.6; O2SAT 92–97
[2017-11-27] MEDS: RESP: ACETYLCYSTEINE 20% 4 ML NEB NEB SCH ×6 (03:25→23:29)
[2017-11-27] MEDS: RESP: ALBUTEROL 2.5 MG/IPRATROPIUM 0.5 MG NEB (SCH) NEB ×6 (03:25→23:29)
--- NOTE | 2017-11-27 08:20 | PD.CARD.PN ---
Subjective Subjective Remarks Having severe cough spasms with respiratory treatments including Mucomyst. Objective Medications Current Medications Medications (Trade) Dose Ordered Sig/Prema Route Start Time Stop Time Status Last Admin (Heparin Inj) 5,000 units UNSCH PRN IV 11/25/17 03:45 (Heparin Inj) 2,500 units UNSCH PRN IV 11/25/17 03:45 11/25/17 05:56 Heparin Sodium/ Dextrose 250 ml @ 8 mls/hr TITRATE PRN IV 11/24/17 21:45 11/26/17 21:09 Pharmacy Profile Note 0 ml @ 0 mls/hr UNSCH OTHER 11/24/17 22:00 Sodium Chloride 1,000 ml @ 100 mls/hr Q10H IV 11/24/17 21:57 11/26/17 13:57 (NS Flush) 2 ml UNSCH PRN IV FLUSH 11/24/17 22:00 (NS Flush) 2 ml BID IV FLUSH 11/25/17 09:00 11/26/17 19:57 (Zofran Inj) 4 mg Q6H PRN IVP 11/24/17 22:00 11/25/17 10:35 (Tylenol) 650 mg Q6H PRN PO 11/24/17 22:00 ([place] 5-325 Mg) 1 tab Q4H PRN PO 11/24/17 22:00 11/26/17 19:58 (Morphine Inj) 2 mg Q3H PRN IV PUSH 11/24/17 22:00 (Huma-Colace) 1 tab BID PO 11/25/17 09:00 11/26/17 19:58 (Milk Of Magnesia Liq) 30 ml Q12H PRN PO 11/24/17 22:00 (Senokot) 17.2 mg Q12H PRN PO 11/24/17 22:00 (Dulcolax Supp) 10 mg DAILY PRN RECTAL 11/24/17 22:00 (Lactulose Liq) 30 ml DAILY PRN PO 11/24/17 22:00 (Nitroglycerin 2% Oint) 0.5 inch Q6HR PRN TOPICAL 11/24/17 22:00 Vancomycin/Sodium Chloride 200 ml @ 200 mls/hr DAILY@2000 IV 11/25/17 20:00 11/26/17 19:56 (D50w (Vial) Inj) 50 ml UNSCH PRN IV PUSH 11/25/17 00:00 (Glucagon Inj) 1 mg UNSCH PRN OTHER 11/25/17 00:00 (NovoLOG SUPPLEMENTAL SCALE) 1 ACHS SLIDING SCALE SQ 11/25/17 08:00 11/26/17 21:10 (Neurontin) 300 mg BID PO 11/25/17 09:00 11/26/17 19:58 (Levemir Inj) 26 units HS SQ 11/25/17 21:00 (Zoloft) 50 mg DAILY PO 11/25/17 09:00 11/26/17 09:49 (Protonix) 20 mg DAILY PO 11/25/17 09:00 11/26/17 09:48 (Robitussin Liq) 200 mg Q4H PRN PO 11/25/17 10:45 11/26/17 19:58 (Albuterol Neb) 2.5 mg Q4HR NEB PRN NEB 11/25/17 10:45 11/25/17 11:32 (Mucinex Er) 600 mg BID PO 11/25/17 21:00 11/26/17 19:58 (Duoneb Neb) 1 ampule Q4HR NEB NEB 11/26/17 12:00 11/27/17 07:35 (SoluMEDROL INJ) 40 mg Q12HR IV PUSH 11/26/17 21:00 11/26/17 19:59 Cefepime HCl 2000 mg/Sodium Chloride 100 ml @ 200 mls/hr Q12H IV 11/26/17 21:00 11/26/17 19:57 Miscellaneous Information SPECIFIC LAB TO BE DRAWN: VANCO TROUGH DATE TO BE DR... ONCE ONCE .XX 11/27/17 19:45 11/27/17 19:46 (Mucomyst 20% Neb) 2 ml Q4HR NEB NEB 11/27/17 00:00 11/27/17 07:35 Vital Signs / I&O Vital Signs Date Time Temp Pulse Resp B/P (MAP) Pulse Ox O2 Delivery O2 Flow Rate FiO2 11/27/17 07:37 92 Nasal Cannula 4.00 11/27/17 07:15 93 Nasal Cannula 3.00 11/27/17 07:15 97.7 82 28 146/70 (95) 93 11/27/17 06:00 76 11/27/17 05:00 74 11/27/17 04:00 98.1 78 18 123/57 (79) 97 11/27/17 04:00 78 11/27/17 04:00 Nasal Cannula 4.00 11/27/17 03:00 79 11/27/17 02:00 80 11/27/17 01:00 79 11/27/17 00:00 83 11/27/17 00:00 98.3 83 20 112/44 (66) 93 11/27/17 00:00 Nasal Cannula 5.00 11/26/17 23:00 79 11/26/17 22:00 80 11/26/17 21:41 96 Nasal Cannula 6.00 11/26/17 21:00 79 11/26/17 20:00 98.1 83 18 137/59 (85) 98 11/26/17 20:00 83 11/26/17 20:00 Nasal Cannula 3.00 11/26/17 15:55 96 50 11/26/17 15:00 98.3 80 18 123/55 (77) 97 11/26/17 12:22 97 BiPAP 40 11/26/17 12:19 96 40 11/26/17 11:00 98.4 77 20 105/49 (67) 97 11/26/17 09:16 96 BiPAP 50 11/26/17 09:00 96 50 I/O 11/26/17 11/26/17 11/26/17 11/27/17 11/27/17 11/27/17 07:00 15:00 23:00 07:00 15:00 23:00 Intake Total 540 ml 240 ml Balance 540 ml 240 ml Intake Oral 240 ml 240 ml IV Total 300 ml # Voids 2 2 # Bowel Movements 0 1 Physical Exam GENERAL: Well-nourished, well-developed patient. SKIN: Warm and dry. HEAD: Normocephalic. EYES: No scleral icterus. No injection or drainage. NECK: Supple, trachea midline. No JVD or lymphadenopathy. CARDIOVASCULAR: Regular rate and rhythm without murmurs, gallops, or rubs. RESPIRATORY: Scattered, coarse rhonchi throughout all anterior lung mcintyre, posterior feels diminished with bibasilar crackles. GASTROINTESTINAL: Abdomen soft, non-tender, nondistended. EXTREMITIES: No cyanosis, or edema. NEUROLOGICAL: Awake, alert, and oriented to self, place. Laboratory Laboratory Tests Test 11/26/17 08:38 11/26/17 11:37 Blood Gas Puncture Site RT RADIAL Blood Gas Patient Temperature 98.6 Blood Gas HCO3 22 mmol/L Blood Gas Base Excess -4.0 mmol/L Blood Gas Oxygen Saturation 91 % Arterial Blood pH 7.26 Arterial Blood Partial Pressure CO2 51 mmHg Arterial Blood Partial Pressure O2 71 mmHg Arterial Blood Oxygen Content 16.2 Vol % Arterial Blood Carboxyhemoglobin 1.0 % Arterial Blood Methemoglobin 1.2 % Blood Gas Hemoglobin 12.7 G/DL Oxygen Delivery Device NRBR Blood Gas Liter Flow 15 L/M Blood Gas Inspired Oxygen 100 % Activated Partial Thromboplast Time 42.5 SEC Imaging Last Impressions Chest X-Ray 11/25/17 0000 Signed Impressions: Service Date/Time: Monday, November 25, 2017 13:35 - CONCLUSION: Persistent right mid and basilar patchy alveolar airspace disease not significantly changed allowing for differences in inspiratory effort Augustus Alvarenga MD Assessment and Plan Problem List: (1) NSTEMI (non-ST elevated myocardial infarction) ICD Codes: I21.4 - Non-ST elevation (NSTEMI) myocardial infarction Plan: No chest pain. Unable to assess dyspnea as patient is having severe cough spasms from respiratory treatment including Mucomyst. Rhonchi throughout all lung mcintyre, suspicious for aspiration pneumonia. Would recommend a speech therapy consult to evaluate swallowing function. Assessment and plan per my discussion with Dr. burns. Mai Corona Nov 27, 2017 08:20
--- NOTE | 2017-11-27 09:18 | HHI.PR ---
Subjective Remarks in no acute distress but she's on four liters of oxygen via N/C. denies chest pain but has some sob. no fever. Objective Vitals Vital Signs Date Time Temp Pulse Resp B/P (MAP) Pulse Ox O2 Delivery O2 Flow Rate FiO2 11/27/17 07:37 92 Nasal Cannula 4.00 11/27/17 07:15 93 Nasal Cannula 3.00 11/27/17 07:15 97.7 82 28 146/70 (95) 93 11/27/17 06:00 76 11/27/17 05:00 74 11/27/17 04:00 98.1 78 18 123/57 (79) 97 11/27/17 04:00 78 11/27/17 04:00 Nasal Cannula 4.00 11/27/17 03:00 79 11/27/17 02:00 80 11/27/17 01:00 79 11/27/17 00:00 83 11/27/17 00:00 98.3 83 20 112/44 (66) 93 11/27/17 00:00 Nasal Cannula 5.00 11/26/17 23:00 79 11/26/17 22:00 80 11/26/17 21:41 96 Nasal Cannula 6.00 11/26/17 21:00 79 11/26/17 20:00 98.1 83 18 137/59 (85) 98 11/26/17 20:00 83 11/26/17 20:00 Nasal Cannula 3.00 11/26/17 15:55 96 50 11/26/17 15:00 98.3 80 18 123/55 (77) 97 11/26/17 12:22 97 BiPAP 40 11/26/17 12:19 96 40 11/26/17 11:00 98.4 77 20 105/49 (67) 97 11/26/17 09:16 96 BiPAP 50 I/O 11/26/17 11/26/17 11/26/17 11/27/17 11/27/17 11/27/17 07:00 15:00 23:00 07:00 15:00 23:00 Intake Total 540 ml 240 ml Balance 540 ml 240 ml Intake Oral 240 ml 240 ml IV Total 300 ml # Voids 2 2 # Bowel Movements 0 1 Result Diagram: 11/26/1724611/26/17246 Imaging Last Impressions Chest X-Ray 11/25/17 0000 Signed Impressions: Service Date/Time: Saturday, November 25, 2017 13:35 - CONCLUSION: Persistent right mid and basilar patchy alveolar airspace disease not significantly changed allowing for differences in inspiratory effort Augustus Alvarenga MD Objective Remarks GENERAL: elderly female, with some sob. CARDIOVASCULAR: Regular rate and regular rhythm without murmurs, gallops, or rubs. RESPIRATORY: diminished air entry in bases bilaterally. GASTROINTESTINAL: Abdomen soft, non-tender, nondistended. Normal, active bowel sounds MUSCULOSKELETAL: Extremities without clubbing, cyanosis, or edema. NEURO: Alert & Oriented x4 to person, place, time, situation. Moves all ext x4 Medications and IVs Inpatient Medications Acetaminophen (Tylenol) 650 mg Q6H PRN PO FEVER/PAIN SCALE 1 TO 2; Start at 22:00 Acetaminophen/ Hydrocodone Bitart ([place] 5-325 Mg) 1 tab Q4H PRN PO PAIN SCALE 3 TO 5 Last administered on 11/26/17at 19:58; Start 11/24/17 at 22:00 Acetylcysteine (Mucomyst 20% Neb) 2 ml Q4HR NEB NEB Last administered on at 07:35; Start 11/27/17 at 00:00 Albuterol Sulfate (Albuterol Neb) 2.5 mg Q4HR NEB PRN NEB Wheezing or Dyspnea Last administered on 11/25/17at 11:32; Start 11/25/17 at 10:45 Albuterol/ Ipratropium (Duoneb Neb) 1 ampule Q4HR NEB NEB Last administered on 11/27/17at 07:35; Start 11/26/17 at 12:00 Aspirin (Aspirin Chew) 324 mg ONCE ONCE CHEW Last administered on 11/24/17at 21: 45; Start 11/24/17 at 21:45; Stop 11/24/17 at 21:46; Status DC Bisacodyl (Dulcolax Supp) 10 mg DAILY PRN RECTAL SEVERE CONSITIPATION; Start at 22:00 Cefepime HCl 1000 mg/Sodium Chloride 100 ml @ 200 mls/hr Q12H IV Last administered on 11/26/17at 09:48; Start 11/25/17 at 09:00; Stop 11/26/17 at 12:02 ; Status DC Cefepime HCl 2000 mg/Sodium Chloride 100 ml @ 200 mls/hr Q12H IV Last administered on 11/26/17at 19:57; Start 11/26/17 at 21:00 Dextrose (D50w (Vial) Inj) 50 ml UNSCH PRN IV PUSH HYPOGLYCEMIA-SEE COMMENTS; Start 11/25/17 at 00:00 Gabapentin (Neurontin) 300 mg BID PO Last administered on 11/26/17at 19:58; Start 11/25/17 at 09:00 Glucagon (Glucagon Inj) 1 mg UNSCH PRN OTHER HYPOGLYCEMIA-SEE COMMENTS; Start 11/25/17 at 00:00 Guaifenesin (Mucinex Er) 600 mg BID PO Last administered on 11/26/17at 19:58; Start 11/25/17 at 21:00 Guaifenesin (Robitussin Liq) 200 mg Q4H PRN PO Cough Last administered on at 19:58; Start 11/25/17 at 10:45 Heparin Sodium (Porcine) (Heparin Inj) 2,500 units UNSCH PRN IV APTT 25 TO 39 Last administered on 11/25/17at 05:56; Start 11/25/17 at 03:45 Heparin Sodium/ Dextrose 250 ml @ 8 mls/hr TITRATE PRN IV Coagulation Management Last administered on 11/26/17at 21:09; Start 11/24/17 at 21:45 Insulin Aspart (NovoLOG SUPPLEMENTAL SCALE) 1 ACHS SLIDING SCALE SQ Last administered on 11/26/17at 21:10; Start 11/25/17 at 08:00 Insulin Detemir (Levemir Inj) 26 units HS SQ ; Start 11/25/17 at 21:00 Lactulose (Lactulose Liq) 30 ml DAILY PRN PO SEVERE CONSITIPATION; Start at 22:00 Magnesium Hydroxide (Milk Of Magnesia Liq) 30 ml Q12H PRN PO Mild constipation ; Start 11/24/17 at 22:00 Methylprednisolone Sodium Succinate (SoluMEDROL INJ) 40 mg ONCE ONCE IV PUSH Last administered on 11/26/17at 12:47; Start 11/26/17 at 10:30; Stop 11/26/17 at 10:34; Status DC Miscellaneous Information SPECIFIC LAB TO BE DRAWN: VANCO TROUGH DATE TO BE DRSol.. ONCE ONCE .XX ; Start 11/27/17 at 19:45; Stop 11/27/17 at 19:46 Morphine Sulfate (Morphine Inj) 2 mg Q3H PRN IV PUSH Pain 6-10; Start 11/24/17 at 22:00 Nitroglycerin (Nitroglycerin 2% Oint) 0.5 inch Q6HR PRN TOPICAL CHEST PAIN; Start 11/24/17 at 22:00 Ondansetron HCl (Zofran Inj) 4 mg Q6H PRN IVP NAUSEA OR VOMITING Last administered on 11/25/17at 10:35; Start 11/24/17 at 22:00 Pantoprazole Sodium (Protonix) 20 mg DAILY PO Last administered on 11/26/17at 09 :48; Start 11/25/17 at 09:00 Pharmacy Profile Note 0 ml @ 0 mls/hr UNSCH OTHER ; Start 11/24/17 at 22:00 Piperacillin Sod/ Tazobactam Sod 50 ml @ 100 mls/hr ONCE ONCE IV Last administered on 11/24/17at 20:15; Start 11/24/17 at 20:15; Stop 11/24/17 at 20:44; Status DC Senna/Docusate Sodium (Huma-Colace) 1 tab BID PO Last administered on at 19:58; Start 11/25/17 at 09:00 Sennosides (Senokot) 17.2 mg Q12H PRN PO Moderate constipation; Start 11/24/17 at 22:00 Sertraline HCl (Zoloft) 50 mg DAILY PO Last administered on 11/26/17at 09:49; Start 11/25/17 at 09:00 Sodium Chloride (NS Flush) 2 ml BID IV FLUSH Last administered on 11/26/17at 19: 57; Start 11/25/17 at 09:00 Vancomycin HCl 500 mg/Sodium Chloride 100 ml @ 200 mls/hr NOW ONCE IV ; Start 11/24/17 at 22:45; Stop 11/24/17 at 23:14; Status DC Vancomycin HCl 1000 mg/Sodium Chloride 250 ml @ 250 mls/hr ONCE ONCE IV Last administered on 11/24/17at 20:15; Start 11/24/17 at 20:15; Stop 11/24/17 at 21:14; Status DC Vancomycin/Sodium Chloride 200 ml @ 200 mls/hr DAILY@1999 IV Last administered on 11/26/17at 19:56; Start 11/25/17 at 20:00 A/P Problem List: (1) Sepsis ICD Code: A41.9 - Sepsis, unspecified organism (2) PNA (pneumonia) ICD Code: J18.9 - Pneumonia, unspecified organism (3) NSTEMI (non-ST elevated myocardial infarction) ICD Code: I21.4 - Non-ST elevation (NSTEMI) myocardial infarction (4) DM (diabetes mellitus) ICD Code: E11.9 - Type 2 diabetes mellitus without complications Assessment and Plan A/P Community-acquired pneumonia acute hypercapnic respiratory failure COPD Continue oxygen as needed Continue vancomycin Continue Zosyn continue IV Solumedrol Follow CBC Continue breathing treatments as needed will repeat ABG today. Possible NSTEMI Potential elevation in troponin related to pneumonia Cardiology consulted and following conservative treatment for now Diabetes mellitus type 2 Follow blood sugars continue levemir Insulin sliding scale Diabetic diet DVT prophylaxis Heparin DNR status- per my discussion with the patient. Discharge Planning patient is still on oxygen via N/C. awaiting repeated ABG. not ready for discharge yet. Tootie Chapa MD Nov 27, 2017 09:18
[2017-11-27] MEDS: INSULIN ASPART SUPPLEMENTAL SCALE SQ SCH ×4 (09:20→20:52)
[2017-11-27] MEDS: CEFEPIME 2000 MG/NS 100 ML IV SCH ×4 (09:24→19:43)
[2017-11-27] MEDS: guaiFENesin E.R. 600 MG TAB PO SCH ×2 (09:25→19:45)
[2017-11-27] MEDS: GABAPENTIN 300 MG CAP PO SCH ×2 (09:25→19:45)
[2017-11-27] MEDS: SODIUM CHLORIDE 0.9% FLUSH 10 ML FLUSH IV FLUSH SCH ×2 (09:25→19:43)
[2017-11-27] MEDS: PANTOPRAZOLE SOD 20 MG DELAYED RELEASE TAB PO SCH (09:25)
[2017-11-27] MEDS: DOCUSATE SODIUM 50 MG/SENNA 8.6 MG TAB PO SCH ×2 (09:25→19:46)
[2017-11-27 09:26] LABS: AUTOMATED NEUTROPHIL # 15.7 TH/MM3 (1.8-7.7); BASOPHIL % 0.2 % (0.0-2.0); HEMATOCRIT 34.6 % (35.0-46.0); HEMOGLOBIN 11.8 GM/DL (11.6-15.3); LYMPH % 7.2 % (9.0-44.0); LYMPHOCYTE # 1.3 TH/MM3 (1.0-4.8); MEAN CELL VOLUME 92.8 FL (80.0-100.0); MEAN CORPUSCULAR HEMOGLOBIN 31.6 PG (27.0-34.0); MEAN CORPUSCULAR HGB CONC 34.1 % (32.0-36.0); MEAN PLATELET VOLUME 7.9 FL (7.0-11.0); MONO % 3.1 % (0.0-8.0); MONOCYTE # 0.5 TH/MM3 (0-0.9); NEUT % 89.5 % (16.0-70.0); PLATELET COUNT 471 TH/MM3 (150-450); RED BLOOD COUNT 3.73 MIL/MM3 (4.00-5.30); RED CELL DISTRIBUTION WIDTH 14.3 % (11.6-17.2); WHITE BLOOD COUNT 17.5 TH/MM3 (4.0-11.0)
[2017-11-27] MEDS: SERTRALINE HCL 50 MG TAB PO SCH (09:26)
[2017-11-27] MEDS: methylPREDNISolone SOD SUCC 40 MG/1 ML VIAL IV PUSH SCH ×2 (09:26→19:49)
[2017-11-27 10:10] LABS: ALBUMIN 1.7 GM/DL (3.4-5.0); ALKALINE PHOSPHATASE 94 U/L (45-117); ALT (GPT) 9 U/L (10-53); AST (GOT) 12 U/L (15-37); BICARBONATE 22.6 MEQ/L (21.0-32.0); BLOOD UREA NITROGEN 16 MG/DL (7-18); CALCIUM 8.4 MG/DL (8.5-10.1); CHLORIDE 101 MEQ/L (98-107); CREATININE 0.71 MG/DL (0.50-1.00); GLOMERULAR FILTRATION RATE 79 ML/MIN (>89); GLUCOSE,RANDOM 256 MG/DL (74-106); SODIUM (NA) 134 MEQ/L (136-145); TOTAL BILIRUBIN ADULT 0.5 MG/DL (0.2-1.0); TOTAL PROTEIN 6.2 GM/DL (6.4-8.2)
[2017-11-27] MEDS: SODIUM CHLOR 0.9% 1000 ML INJ 1,000 ML IV SCH ×2 (10:11→19:49)
[2017-11-27] MEDS ORDERED: PHARMACY ORDERED LAB ONE (19:45)
[2017-11-27] MEDS: VANCOMYCIN 1 GM/200 ML PREMIX IV SCH (20:44)
[2017-11-27] MEDS: INSULIN DETEMIR 100 UNITS/ML VIAL SQ SCH (20:45)
[2017-11-28] VITALS (30 sets, daily range): BP systolic 124–178; BP diastolic 65–83; PULSE 60–110; RESP 20–30; TEMP 97.7–99.1; O2SAT 89–96
[2017-11-28] MEDS: HEPARIN-D5W 25,000 U/250 ML 250 ML IV PRN (01:20)
[2017-11-28] MEDS: RESP: ALBUTEROL 2.5 MG/IPRATROPIUM 0.5 MG NEB (SCH) NEB ×5 (03:36→21:17)
[2017-11-28] MEDS: RESP: ACETYLCYSTEINE 20% 4 ML NEB NEB SCH ×5 (03:36→21:18)
--- NOTE | 2017-11-28 05:04 | RADRPT ---
EXAM DATE/TIME: 11/28/2017 04:17 [facility] COMPARISON: CHEST SINGLE AP, November 25, 2017, 13:35. INDICATIONS : Short of breath. MEDICAL HISTORY : None. SURGICAL HISTORY : None. ENCOUNTER: Subsequent ACUITY: 1 week PAIN SCORE: 0/10 LOCATION: Bilateral chest FINDINGS: There is increasing interstitial infiltrate bilaterally with cardiomegaly, and a small right effusion suspected. Right lower lobe airspace disease is noted. CONCLUSION: Worsening appearance of the chest. Clay Franco MD on November 28, 2017 at 5:01 Board Certified Radiologist. This report was verified electronically.
[2017-11-28] MEDS: guaiFENesin SOLUTION 200 MG/10 ML CUP PO PRN (06:10)
--- NOTE | 2017-11-28 06:27 | MB ---
cc: BELA PRAKASH DATE OF CONSULTATION 11/27/[address] Sabiha Cunningham REASON FOR CONSULTATION Pneumonia and respiratory insufficiency. HISTORY OF PRESENT ILLNESS Ms. Paul is a pleasant 82-year-old female with history of hypertension and dementia. She lives in a halfway. She was sent over here because of worsening of weakness, fever, confusion and hypoxia. She was worked up in the hospital. Her initial blood gas showed pH of 7.26, pCO2 51, pO2 71 on 100% oxygen. She used BiPap briefly. Currently she is weaned down to nasal cannula. She is still somewhat confused and she tells me she lives at her home with her grandchildren . She has cough and congestion, a small amount of sputum production. No nausea or vomiting. PAST MEDICAL HISTORY Significant for - 1. History of diabetes mellitus. 2. Hypertension . 3. Dementia. 4. History of hysterectomy. MEDICATIONS She has a history of smoking and smoked one pack per day. No alcohol use. 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 FAMILY HISTORY She says she has four children and has two grandchildren who live with her. REVIEW OF SYSTEMS She has no headache or dizziness. Denies any malignancy. No DVT or pulmonary embolism. PHYSICAL EXAMINATION General: An elderly female mild short of breath. Vital Signs: Blood pressure 141/72, heart rate 83, respirations 22, temperature 93.6. HEENT Examination: Pupils are equal and react to light. She had bilateral cataract surgery done. Oral mucosa, nasal mucosa normal. Neck: Supple. JVP not raised. Chest: She has rales, more so on the right side. CV: S1 and S2 normal. Abdomen: Benign. Extremities: No edema. SVP GROUP DIRECTOR: The patient is alert and oriented x3. LABORATORY FINDINGS WBC count 17.5, hemoglobin 11.8, hematocrit 34.6, MCV 92, platelet count 471. Sodium 134, potassium 3.9, chloride 101, CO2 22, BUN 16, creatinine 0.71. CHEST X-RAY She has a right patchy diffuse airspace infiltrates. Her blood cultures are negative. Influenza antigen is negative. IMPRESSION 1. Pneumonia. 2. Hypoxia. 3. Diabetes mellitus. 4. Underlying dementia. 5. Leukocytosis. PLAN We will continue antibiotics, cefepime and vancomycin, give her aerosol with albuterol/Atrovent, supplement her oxygen, keep the saturation greater than 90%. Monitor her blood sugar and monitor her CBC. Further treatment will depend on her course in the hospital. Thank you Dr. Sabiha Cunningham for this consult. Bela Prakash MD ADA/SSB /6:59 PM /6:09 AM ROBERT[facility]
[2017-11-28 06:54] LABS: AUTOMATED NEUTROPHIL # 18.8 TH/MM3 (1.8-7.7); BASOPHIL % 0.2 % (0.0-2.0); HEMATOCRIT 33.5 % (35.0-46.0); HEMOGLOBIN 11.5 GM/DL (11.6-15.3); LYMPHOCYTE # 1.3 TH/MM3 (1.0-4.8); MEAN CELL VOLUME 92.4 FL (80.0-100.0); MEAN CORPUSCULAR HEMOGLOBIN 31.7 PG (27.0-34.0); MEAN CORPUSCULAR HGB CONC 34.3 % (32.0-36.0); MEAN PLATELET VOLUME 7.2 FL (7.0-11.0); MONO % 3.8 % (0.0-8.0); MONOCYTE # 0.8 TH/MM3 (0-0.9); PLATELET COUNT 481 TH/MM3 (150-450); RED BLOOD COUNT 3.62 MIL/MM3 (4.00-5.30); RED CELL DISTRIBUTION WIDTH 14.1 % (11.6-17.2); WHITE BLOOD COUNT 20.9 TH/MM3 (4.0-11.0)
[2017-11-28] MEDS: INSULIN ASPART SUPPLEMENTAL SCALE SQ SCH ×4 (08:00→21:00)
[2017-11-28] MEDS: SODIUM CHLORIDE 0.9% FLUSH 10 ML FLUSH IV FLUSH SCH ×2 (09:33→21:29)
[2017-11-28] MEDS: guaiFENesin E.R. 600 MG TAB PO SCH ×2 (09:37→21:29)
[2017-11-28] MEDS: methylPREDNISolone SOD SUCC 40 MG/1 ML VIAL IV PUSH SCH ×2 (09:37→21:30)
[2017-11-28] MEDS: PANTOPRAZOLE SOD 20 MG DELAYED RELEASE TAB PO SCH (09:37)
[2017-11-28] MEDS: SERTRALINE HCL 50 MG TAB PO SCH (09:37)
[2017-11-28] MEDS: GABAPENTIN 300 MG CAP PO SCH ×2 (09:37→21:31)
[2017-11-28] MEDS: DOCUSATE SODIUM 50 MG/SENNA 8.6 MG TAB PO SCH ×2 (09:38→21:00)
[2017-11-28] MEDS: CEFEPIME 2000 MG/NS 100 ML IV SCH ×4 (09:43→21:30)
[2017-11-28] MEDS: ONDANSETRON HCL 4 MG/2 ML VIAL IVP PRN (09:47)
[2017-11-28] MEDS ORDERED: FUROSEMIDE 20 MG/2 ML VIAL IV PUSH ONE (12:15)
--- NOTE | 2017-11-28 12:23 | HHI.PR ---
Subjective Remarks in no acute distress. but still on four liters of oxygen via N/C. sounds congested with on and off cough. no fever. d/w the RN at the bedside. Objective Vitals Vital Signs Date Time Temp Pulse Resp B/P (MAP) Pulse Ox O2 Delivery O2 Flow Rate FiO2 11/28/17 12:05 98.3 98 30 124/66 (85) 93 11/28/17 10:00 106 11/28/17 09:31 145/73 (97) 11/28/17 09:00 102 11/28/17 08:00 110 11/28/17 07:55 98.3 97 27 178/83 (114) 89 11/28/17 07:55 89 Nasal Cannula 5.00 11/28/17 07:53 90 Nasal Cannula 5.00 11/28/17 07:00 97 11/28/17 06:00 98 11/28/17 05:00 98 11/28/17 04:00 80 11/28/17 04:00 98.7 94 28 162/75 (104) 90 11/28/17 03:00 72 11/28/17 02:00 80 11/28/17 01:00 80 11/28/17 00:00 60 11/28/17 00:00 97.7 88 24 162/73 (102) 92 11/27/17 23:29 93 Nasal Cannula 5.00 11/27/17 23:00 62 11/27/17 22:00 76 11/27/17 21:00 78 11/27/17 20:00 98.0 80 24 154/67 (96) 92 11/27/17 20:00 87 11/27/17 20:00 Nasal Cannula 4.00 11/27/17 19:00 82 11/27/17 18:46 86 11/27/17 17:00 94 11/27/17 16:00 84 11/27/17 15:31 98.6 83 27 141/72 (95) 95 11/27/17 15:28 93 Nasal Cannula 6.00 11/27/17 15:00 75 11/27/17 14:00 86 11/27/17 13:00 84 I/O 2/12/18 2/12/18 2/12/18 2/13/18 2/13/18 2/13/18 07:00 15:00 23:00 07:00 15:00 23:00 Intake Total 240 ml 1780 ml 450 ml Output Total 600 ml Balance 240 ml 1180 ml 450 ml Intake Oral 240 ml 480 ml 200 ml IV Total 1300 ml 250 ml Output Urine Total 600 ml # Voids 2 2 # Bowel Movements 1 1 2 Result Diagram: 11/28/17 0547 11/27/17 0759 Imaging Last Impressions Chest X-Ray 11/28/17 0600 Signed Impressions: Service Date/Time: Tuesday, November 28, 2017 04:17 - CONCLUSION: Worsening appearance of the chest. Clay Franco MD Objective Remarks GENERAL: elderly female, with some sob. CARDIOVASCULAR: Regular rate and regular rhythm without murmurs, gallops, or rubs. RESPIRATORY: diminished air entry in bases bilaterally. GASTROINTESTINAL: Abdomen soft, non-tender, nondistended. Normal, active bowel sounds MUSCULOSKELETAL: Extremities without clubbing, cyanosis, or edema. NEURO: Alert & Oriented x4 to person, place, time, situation. Moves all ext x4 Medications and IVs Inpatient Medications Acetaminophen (Tylenol) 650 mg Q6H PRN PO FEVER/PAIN SCALE 1 TO 2; Start at 22:00 Acetaminophen/ Hydrocodone Bitart ([place] 5-325 Mg) 1 tab Q4H PRN PO PAIN SCALE 3 TO 5 Last administered on 11/26/17at 19:58; Start 11/24/17 at 22:00 Acetylcysteine (Mucomyst 20% Neb) 2 ml Q4HR NEB NEB Last administered on at 11:38; Start 11/27/17 at 00:00 Albuterol Sulfate (Albuterol Neb) 2.5 mg Q4HR NEB PRN NEB Wheezing or Dyspnea Last administered on 11/25/17at 11:32; Start 11/25/17 at 10:45 Albuterol/ Ipratropium (Duoneb Neb) 1 ampule Q4HR NEB NEB Last administered on 11/28/17at 11:38; Start 11/26/17 at 12:00 Aspirin (Aspirin Chew) 324 mg ONCE ONCE CHEW Last administered on 11/24/17at 21: 45; Start 11/24/17 at 21:45; Stop 11/24/17 at 21:46; Status DC Bisacodyl (Dulcolax Supp) 10 mg DAILY PRN RECTAL SEVERE CONSITIPATION; Start at 22:00 Cefepime HCl 1000 mg/Sodium Chloride 100 ml @ 200 mls/hr Q12H IV Last administered on 11/26/17at 09:48; Start 11/25/17 at 09:00; Stop 11/26/17 at 12:02 ; Status DC Cefepime HCl 2000 mg/Sodium Chloride 100 ml @ 200 mls/hr Q12H IV Last administered on 11/28/17at 09:43; Start 11/26/17 at 21:00 Dextrose (D50w (Vial) Inj) 50 ml UNSCH PRN IV PUSH HYPOGLYCEMIA-SEE COMMENTS; Start 11/25/17 at 00:00 Gabapentin (Neurontin) 300 mg BID PO Last administered on 11/28/17at 09:37; Start 11/25/17 at 09:00 Glucagon (Glucagon Inj) 1 mg UNSCH PRN OTHER HYPOGLYCEMIA-SEE COMMENTS; Start 11/25/17 at 00:00 Guaifenesin (Mucinex Er) 600 mg BID PO Last administered on 11/28/17at 09:37; Start 11/25/17 at 21:00 Guaifenesin (Robitussin Liq) 200 mg Q4H PRN PO Cough Last administered on at 06:10; Start 11/25/17 at 10:45 Heparin Sodium (Porcine) (Heparin Inj) 2,500 units UNSCH PRN IV APTT 25 TO 39 Last administered on 11/25/17at 05:56; Start 11/25/17 at 03:45 Heparin Sodium/ Dextrose 250 ml @ 8 mls/hr TITRATE PRN IV Coagulation Management Last administered on 11/28/17at 01:20; Start 11/24/17 at 21:45 Insulin Aspart (NovoLOG SUPPLEMENTAL SCALE) 1 ACHS SLIDING SCALE SQ Last administered on 11/27/17at 20:52; Start 11/25/17 at 08:00 Insulin Detemir (Levemir Inj) 26 units HS SQ Last administered on 11/27/17at 20: 45; Start 11/25/17 at 21:00 Lactulose (Lactulose Liq) 30 ml DAILY PRN PO SEVERE CONSITIPATION; Start at 22:00 Magnesium Hydroxide (Milk Of Magnesia Liq) 30 ml Q12H PRN PO Mild constipation ; Start 11/24/17 at 22:00 Methylprednisolone Sodium Succinate (SoluMEDROL INJ) 40 mg ONCE ONCE IV PUSH Last administered on 11/26/17at 12:47; Start 11/26/17 at 10:30; Stop 11/26/17 at 10:34; Status DC Miscellaneous Information SPECIFIC LAB TO BE DRAWN:[facility] TROUGH DATE TO BE DR... ONCE ONCE .XX ; Start 11/29/17 at 07:45; Stop 11/29/17 at 07:46 Morphine Sulfate (Morphine Inj) 2 mg Q3H PRN IV PUSH Pain 6-10; Start 11/24/17 at 22:00 Nitroglycerin (Nitroglycerin 2% Oint) 0.5 inch Q6HR PRN TOPICAL CHEST PAIN; Start 11/24/17 at 22:00 Ondansetron HCl (Zofran Inj) 4 mg Q6H PRN IVP NAUSEA OR VOMITING Last administered on 11/28/17at 09:47; Start 11/24/17 at 22:00 Pantoprazole Sodium (Protonix) 20 mg DAILY PO Last administered on 11/28/17at 09 :37; Start 11/25/17 at 09:00 Pharmacy Profile Note 0 ml @ 0 mls/hr UNSCH OTHER ; Start 11/24/17 at 22:00 Piperacillin Sod/ Tazobactam Sod 50 ml @ 100 mls/hr ONCE ONCE IV Last administered on 11/24/17at 20:15; Start 11/24/17 at 20:15; Stop 11/24/17 at 20:44; Status DC Senna/Docusate Sodium (Huma-Colace) 1 tab BID PO Last administered on at 09:25; Start 11/25/17 at 09:00 Sennosides (Senokot) 17.2 mg Q12H PRN PO Moderate constipation; Start 11/24/17 at 22:00 Sertraline HCl (Zoloft) 50 mg DAILY PO Last administered on 11/28/17at 09:37; Start 11/25/17 at 09:00 Sodium Chloride (NS Flush) 2 ml BID IV FLUSH Last administered on 11/27/17at 09: 25; Start 11/25/17 at 09:00 Vancomycin HCl 500 mg/Sodium Chloride 100 ml @ 200 mls/hr NOW ONCE IV ; Start 11/24/17 at 22:45; Stop 11/24/17 at 23:14; Status DC Vancomycin HCl 1000 mg/Sodium Chloride 250 ml @ 250 mls/hr ONCE ONCE IV Last administered on 11/24/17at 20:15; Start 11/24/17 at 20:15; Stop 11/24/17 at 21:14; Status DC Vancomycin/Sodium Chloride 200 ml @ 200 mls/hr Q18H IV ; Start 11/28/17 at 14: 00 A/P Problem List: (1) Sepsis ICD Code: A41.9 - Sepsis, unspecified organism (2) PNA (pneumonia) ICD Code: J18.9 - Pneumonia, unspecified organism (3) NSTEMI (non-ST elevated myocardial infarction) ICD Code: I21.4 - Non-ST elevation (NSTEMI) myocardial infarction (4) DM (diabetes mellitus) ICD Code: E11.9 - Type 2 diabetes mellitus without complications Assessment and Plan A/P Community-acquired pneumonia acute hypercapnic respiratory failure COPD Continue oxygen as needed Continue vancomycin Continue Zosyn continue IV Solumedrol Follow CBC Continue breathing treatments as needed pulmonary consult appreciated will consult ST for swallow evaluation Possible NSTEMI possible fluid overload Potential elevation in troponin related to pneumonia Cardiology consulted and following conservative treatment for now will dc heparin drip soon- when ok with cardiology. hold IV fluid- one dose of Lasix today check echo stress test when more stable leukocytosis- worse today continue antibiotics- will monitor temps- CBC in am. Diabetes mellitus type 2 Follow blood sugars continue levemir Insulin sliding scale Diabetic diet DVT prophylaxis Heparin DNR status- per my discussion with the patient. Discharge Planning patient is still on oxygen via N/C. awaiting repeated ABG. not ready for discharge yet. Tootie Chapa MD Nov 28, 2017 12:23
--- NOTE | 2017-11-28 13:36 | HHI.PR ---
Subjective Remarks Feeling better Objective Vital Signs Date Time Temp Pulse Resp B/P (MAP) Pulse Ox O2 Delivery O2 Flow Rate FiO2 11/28/17 12:05 98.3 98 30 124/66 (85) 93 11/28/17 10:00 106 11/28/17 09:31 145/73 (97) 11/28/17 09:00 102 11/28/17 08:00 110 11/28/17 07:55 98.3 97 27 178/83 (114) 89 11/28/17 07:55 89 Nasal Cannula 5.00 11/28/17 07:53 90 Nasal Cannula 5.00 11/28/17 07:00 97 11/28/17 06:00 98 11/28/17 05:00 98 11/28/17 04:00 80 11/28/17 04:00 98.7 94 28 162/75 (104) 90 11/28/17 03:00 72 11/28/17 02:00 80 11/28/17 01:00 80 11/28/17 00:00 60 11/28/17 00:00 97.7 88 24 162/73 (102) 92 11/27/17 23:29 93 Nasal Cannula 5.00 11/27/17 23:00 62 11/27/17 22:00 76 11/27/17 21:00 78 11/27/17 20:00 98.0 80 24 154/67 (96) 92 11/27/17 20:00 87 11/27/17 20:00 Nasal Cannula 4.00 11/27/17 19:00 82 11/27/17 18:46 86 11/27/17 17:00 94 11/27/17 16:00 84 11/27/17 15:31 98.6 83 27 141/72 (95) 95 11/27/17 15:28 93 Nasal Cannula 6.00 11/27/17 15:00 75 11/27/17 14:00 86 I/O 11/27/17 11/27/17 11/27/17 11/28/17 11/28/17 11/28/17 07:00 15:00 23:00 07:00 15:00 23:00 Intake Total 240 ml 1780 ml 450 ml Output Total 600 ml Balance 240 ml 1180 ml 450 ml Intake Oral 240 ml 480 ml 200 ml IV Total 1300 ml 250 ml Output Urine Total 600 ml # Voids 2 2 # Bowel Movements 1 1 2 Result Diagram: 11/28/17 0547 11/27/17 0759 Imaging Alert, fully oriented Lungs: ventilated Heart: S1, S2 regular, no gallop Abdomen: soft, no mass Ext: No edema Last Impressions Chest X-Ray 11/28/17 0600 Signed Impressions: Service Date/Time: Tuesday, November 28, 2017 04:17 - CONCLUSION: Worsening appearance of the chest. Clay Franco MD Current Medications Medications (Trade) Dose Ordered Sig/Prema Route Start Time Stop Time Status Last Admin (Heparin Inj) 5,000 units UNSCH PRN IV 11/25/17 03:45 (Heparin Inj) 2,500 units UNSCH PRN IV 11/25/17 03:45 11/25/17 05:56 Heparin Sodium/ Dextrose 250 ml @ 8 mls/hr TITRATE PRN IV 11/24/17 21:45 11/28/17 01:20 Pharmacy Profile Note 0 ml @ 0 mls/hr UNSCH OTHER 11/24/17 22:00 Sodium Chloride 1,000 ml @ 100 mls/hr Q10H IV 11/24/17 21:57 Future Hold 11/27/17 19:49 (NS Flush) 2 ml UNSCH PRN IV FLUSH 11/24/17 22:00 (NS Flush) 2 ml BID IV FLUSH 11/25/17 09:00 11/27/17 09:25 (Zofran Inj) 4 mg Q6H PRN IVP 11/24/17 22:00 11/28/17 09:47 (Tylenol) 650 mg Q6H PRN PO 11/24/17 22:00 ([place] 5-325 Mg) 1 tab Q4H PRN PO 11/24/17 22:00 11/26/17 19:58 (Morphine Inj) 2 mg Q3H PRN IV PUSH 11/24/17 22:00 (Huma-Colace) 1 tab BID PO 11/25/17 09:00 11/27/17 09:25 (Milk Of Magnesia Liq) 30 ml Q12H PRN PO 11/24/17 22:00 (Senokot) 17.2 mg Q12H PRN PO 11/24/17 22:00 (Dulcolax Supp) 10 mg DAILY PRN RECTAL 11/24/17 22:00 (Lactulose Liq) 30 ml DAILY PRN PO 11/24/17 22:00 (Nitroglycerin 2% Oint) 0.5 inch Q6HR PRN TOPICAL 11/24/17 22:00 (D50w (Vial) Inj) 50 ml UNSCH PRN IV PUSH 11/25/17 00:00 (Glucagon Inj) 1 mg UNSCH PRN OTHER 11/25/17 00:00 (NovoLOG SUPPLEMENTAL SCALE) 1 ACHS SLIDING SCALE SQ 11/25/17 08:00 11/28/17 12:47 (Neurontin) 300 mg BID PO 11/25/17 09:00 11/28/17 09:37 (Levemir Inj) 26 units HS SQ 11/25/17 21:00 11/27/17 20:45 (Zoloft) 50 mg DAILY PO 11/25/17 09:00 11/28/17 09:37 (Protonix) 20 mg DAILY PO 11/25/17 09:00 11/28/17 09:37 (Robitussin Liq) 200 mg Q4H PRN PO 11/25/17 10:45 11/28/17 06:10 (Albuterol Neb) 2.5 mg Q4HR NEB PRN NEB 11/25/17 10:45 11/25/17 11:32 (Mucinex Er) 600 mg BID PO 11/25/17 21:00 11/28/17 09:37 (Duoneb Neb) 1 ampule Q4HR NEB NEB 11/26/17 12:00 11/28/17 11:38 (SoluMEDROL INJ) 40 mg Q12HR IV PUSH 11/26/17 21:00 11/28/17 09:37 Cefepime HCl 2000 mg/Sodium Chloride 100 ml @ 200 mls/hr Q12H IV 11/26/17 21:00 11/28/17 09:43 (Mucomyst 20% Neb) 2 ml Q4HR NEB NEB 11/27/17 00:00 11/28/17 11:38 Vancomycin/Sodium Chloride 200 ml @ 200 mls/hr Q18H IV 11/28/17 14:00 Miscellaneous Information SPECIFIC LAB TO BE DRAWN:[facility] TROUGH DATE TO BE DRSol.. ONCE ONCE .XX 11/29/17 07:45 11/29/17 07:46 Assessment and Plan Problem List: (1) Shortness of breath ICD Codes: R06.02 - Shortness of breath Plan: Doing better SOB improve (2) NSTEMI (non-ST elevated myocardial infarction) ICD Codes: I21.4 - Non-ST elevation (NSTEMI) myocardial infarction Plan: No chest pain DNR No need for stress study Heparin DC Medical management (3) Sepsis ICD Codes: A41.9 - Sepsis, unspecified organism Plan: On IV antibiotic Elizabeth Betancourt MD Nov 28, 2017 13:36
[2017-11-28] MEDS: VANCOMYCIN 1 GM/200 ML PREMIX IV SCH (14:17)
--- NOTE | 2017-11-28 18:20 | HHI.PR ---
Subjective Remarks 82 YOWF with Pn,NSTMI,Dementia Breathing better Mild sob No CP No fever Objective Vital Signs Vital Signs Date Time Temp Pulse Resp B/P (MAP) Pulse Ox O2 Delivery O2 Flow Rate FiO2 11/28/17 17:17 86 11/28/17 16:03 72 11/28/17 15:21 98.3 94 20 136/73 (94) 93 11/28/17 15:00 77 11/28/17 14:00 102 11/28/17 13:00 92 11/28/17 12:05 98.3 98 30 124/66 (85) 93 11/28/17 12:00 80 11/28/17 11:00 86 11/28/17 10:00 106 11/28/17 09:31 145/73 (97) 11/28/17 09:00 102 11/28/17 08:00 110 11/28/17 07:55 98.3 97 27 178/83 (114) 89 11/28/17 07:55 89 Nasal Cannula 5.00 11/28/17 07:53 90 Nasal Cannula 5.00 11/28/17 07:00 97 11/28/17 06:00 98 11/28/17 05:00 98 11/28/17 04:00 80 11/28/17 04:00 98.7 94 28 162/75 (104) 90 11/28/17 03:00 72 11/28/17 02:00 80 11/28/17 01:00 80 11/28/17 00:00 60 11/28/17 00:00 97.7 88 24 162/73 (102) 92 11/27/17 23:29 93 Nasal Cannula 5.00 11/27/17 23:00 62 11/27/17 22:00 76 11/27/17 21:00 78 11/27/17 20:00 98.0 80 24 154/67 (96) 92 11/27/17 20:00 87 11/27/17 20:00 Nasal Cannula 4.00 11/27/17 19:00 82 11/27/17 18:46 86 I/O 11/27/17 11/27/17 11/27/17 11/28/17 11/28/17 11/28/17 07:00 15:00 23:00 07:00 15:00 23:00 Intake Total 240 ml 1780 ml 450 ml 480 ml Output Total 600 ml 1000 ml Balance 240 ml 1180 ml 450 ml -520 ml Intake Oral 240 ml 480 ml 200 ml 480 ml IV Total 1300 ml 250 ml Output Urine Total 600 ml 1000 ml # Voids 2 2 3 # Bowel Movements 1 1 2 1 Result Diagram: 11/28/17 0547 11/27/17 0759 Objective Remarks GENERAL: Elderly WF, NAD SKIN: Warm and dry. HEAD: Normocephalic. EYES: No scleral icterus. No injection or drainage. NECK: Supple, trachea midline. No JVD or lymphadenopathy. CARDIOVASCULAR: Regular rate and rhythm without murmurs, gallops, or rubs. RESPIRATORY: Breath sounds equal bilaterally. No accessory muscle use. GASTROINTESTINAL: Abdomen soft, non-tender, nondistended. MUSCULOSKELETAL: No cyanosis, or edema. BACK: Nontender without obvious deformity. No CVA tenderness. A/P Assessment and Plan Pneumonia Leucocytosis NSTMI DM Hypoxia Dementia PLAN: Cont Abx Aerosol nebs supplement 02 Monitor BS Aidan Reyez MD Nov 28, 2017 18:20
[2017-11-28] MEDS: INSULIN DETEMIR 100 UNITS/ML VIAL SQ SCH (21:31)
[2017-11-29] VITALS (27 sets, daily range): BP systolic 139–164; BP diastolic 63–78; PULSE 62–93; RESP 17–23; TEMP 98.1–98.9; O2SAT 90–100
[2017-11-29] MEDS: RESP: ACETYLCYSTEINE 20% 4 ML NEB NEB SCH ×4 (00:17→11:29)
[2017-11-29] MEDS: RESP: ALBUTEROL 2.5 MG/IPRATROPIUM 0.5 MG NEB (SCH) NEB ×7 (00:17→23:50)
[2017-11-29 07:06] LABS: BICARBONATE 30.1 MEQ/L (21.0-32.0); CALCIUM 8.3 MG/DL (8.5-10.1); CREATININE 0.59 MG/DL (0.50-1.00)
[2017-11-29 07:17] LABS: AUTOMATED NEUTROPHIL # 9.7 TH/MM3 (1.8-7.7); BASOPHIL % 0.1 % (0.0-2.0); HEMATOCRIT 34.1 % (35.0-46.0); HEMOGLOBIN 11.7 GM/DL (11.6-15.3); LYMPH % 10.2 % (9.0-44.0); LYMPHOCYTE # 1.2 TH/MM3 (1.0-4.8); MEAN CELL VOLUME 92.2 FL (80.0-100.0); MEAN CORPUSCULAR HEMOGLOBIN 31.7 PG (27.0-34.0); MEAN CORPUSCULAR HGB CONC 34.3 % (32.0-36.0); MEAN PLATELET VOLUME 7.6 FL (7.0-11.0); MONO % 5.4 % (0.0-8.0); MONOCYTE # 0.6 TH/MM3 (0-0.9); NEUT % 84.3 % (16.0-70.0); PLATELET COUNT 409 TH/MM3 (150-450); RED BLOOD COUNT 3.69 MIL/MM3 (4.00-5.30); WHITE BLOOD COUNT 11.5 TH/MM3 (4.0-11.0)
[2017-11-29] MEDS ORDERED: PHARMACY ORDERED LAB ONE (07:45)
[2017-11-29] MEDS: VANCOMYCIN 1 GM/200 ML PREMIX IV SCH (08:18)
[2017-11-29] MEDS: DOCUSATE SODIUM 50 MG/SENNA 8.6 MG TAB PO SCH ×2 (09:00→21:28)
[2017-11-29] MEDS: SERTRALINE HCL 50 MG TAB PO SCH (09:01)
[2017-11-29] MEDS: guaiFENesin E.R. 600 MG TAB PO SCH ×2 (09:01→21:28)
[2017-11-29] MEDS: PANTOPRAZOLE SOD 20 MG DELAYED RELEASE TAB PO SCH (09:02)
[2017-11-29] MEDS: GABAPENTIN 300 MG CAP PO SCH ×2 (09:02→21:28)
[2017-11-29] MEDS: INSULIN ASPART SUPPLEMENTAL SCALE SQ SCH ×4 (09:04→21:29)
[2017-11-29] MEDS: methylPREDNISolone SOD SUCC 40 MG/1 ML VIAL IV PUSH SCH ×2 (09:04→21:34)
[2017-11-29] MEDS: SODIUM CHLORIDE 0.9% FLUSH 10 ML FLUSH IV FLUSH SCH ×2 (09:05→21:36)
--- NOTE | 2017-11-29 09:20 | HHI.PR ---
Subjective Remarks overall looking better today. however still on five liters of oxygen via N/C. awake and alert. sob improving. denies pain. no fever. d/w the RN at the bedside. Objective Vitals Vital Signs Date Time Temp Pulse Resp B/P (MAP) Pulse Ox O2 Delivery O2 Flow Rate FiO2 11/29/17 08:54 88 11/29/17 07:41 93 Nasal Cannula 5.00 11/29/17 07:31 93 Nasal Cannula 5.00 11/29/17 07:24 98.4 77 19 149/64 (92) 93 11/29/17 07:00 86 11/29/17 07:00 98.1 75 17 164/72 (102) 95 11/29/17 06:00 81 11/29/17 05:00 71 11/29/17 04:00 81 11/29/17 03:30 98.8 80 18 144/75 (98) 92 11/29/17 03:00 68 11/29/17 02:00 69 11/29/17 01:00 76 11/29/17 00:00 76 11/29/17 00:00 98.8 76 20 157/78 (104) 91 11/28/17 23:00 76 11/28/17 22:00 70 11/28/17 21:28 96 Nasal Cannula 5.00 11/28/17 21:00 66 11/28/17 20:00 99.1 85 20 141/65 (90) 92 11/28/17 20:00 92 Nasal Cannula 4.00 11/28/17 20:00 92 11/28/17 19:00 74 11/28/17 18:44 90 11/28/17 17:17 86 11/28/17 16:03 72 11/28/17 15:21 98.3 94 20 136/73 (94) 93 11/28/17 15:00 77 11/28/17 14:00 102 11/28/17 13:00 92 11/28/17 12:05 98.3 98 30 124/66 (85) 93 11/28/17 12:00 80 11/28/17 11:00 86 11/28/17 10:00 106 11/28/17 09:31 145/73 (97) I/O 11/28/17 11/28/17 11/28/17 11/29/17/14/18 2/14/18 07:00 15:00 23:00 07:00 15:00 23:00 Intake Total 450 ml 480 ml 340 ml Output Total 1000 ml 300 ml Balance 450 ml -520 ml 40 ml Intake Oral 200 ml 480 ml 240 ml IV Total 250 ml 100 ml Output Urine Total 1000 ml 300 ml # Voids 2 3 1 # Bowel Movements 2 1 0 Result Diagram: 11/29/17 0609 11/29/17 0609 Imaging Last Impressions Chest X-Ray 11/28/17 0600 Signed Impressions: Service Date/Time: Tuesday, November 28, 2017 04:17 - CONCLUSION: Worsening appearance of the chest. Clay Franco MD Objective Remarks GENERAL: elderly female, with some sob. CARDIOVASCULAR: Regular rate and regular rhythm without murmurs, gallops, or rubs. RESPIRATORY: diminished air entry in bases bilaterally. GASTROINTESTINAL: Abdomen soft, non-tender, nondistended. Normal, active bowel sounds MUSCULOSKELETAL: Extremities without clubbing, cyanosis, or edema. NEURO: Alert & Oriented x4 to person, place, time, situation. Moves all ext x4 Medications and IVs Inpatient Medications Acetaminophen (Tylenol) 650 mg Q6H PRN PO FEVER/PAIN SCALE 1 TO 2; Start at 22:00 Acetaminophen/ Hydrocodone Bitart ([place] 5-325 Mg) 1 tab Q4H PRN PO PAIN SCALE 3 TO 5 Last administered on 11/26/17at 19:58; Start 11/24/17 at 22:00 Acetylcysteine (Mucomyst 20% Neb) 2 ml Q4HR NEB NEB Last administered on at 07:41; Start 11/27/17 at 00:00 Albuterol Sulfate (Albuterol Neb) 2.5 mg Q4HR NEB PRN NEB Wheezing or Dyspnea Last administered on 11/25/17at 11:32; Start 11/25/17 at 10:45 Albuterol/ Ipratropium (Duoneb Neb) 1 ampule Q4HR NEB NEB Last administered on 11/29/17at 07:41; Start 11/26/17 at 12:00 Aspirin (Aspirin Chew) 324 mg ONCE ONCE CHEW Last administered on 11/24/17at 21: 45; Start 11/24/17 at 21:45; Stop 11/24/17 at 21:46; Status DC Bisacodyl (Dulcolax Supp) 10 mg DAILY PRN RECTAL SEVERE CONSITIPATION; Start at 22:00 Cefepime HCl 1000 mg/Sodium Chloride 100 ml @ 200 mls/hr Q12H IV Last administered on 11/26/17at 09:48; Start 11/25/17 at 09:00; Stop 11/26/17 at 12:02 ; Status DC Cefepime HCl 2000 mg/Sodium Chloride 100 ml @ 200 mls/hr Q12H IV Last administered on 11/28/17at 21:30; Start 11/26/17 at 21:00 Dextrose (D50w (Vial) Inj) 50 ml UNSCH PRN IV PUSH HYPOGLYCEMIA-SEE COMMENTS; Start 11/25/17 at 00:00 Furosemide (Lasix Inj) 20 mg ONCE ONCE IV PUSH Last administered on 11/28/17at 12:50; Start 11/28/17 at 12:15; Stop 11/28/17 at 12:27; Status DC Gabapentin (Neurontin) 300 mg BID PO Last administered on 11/29/17at 09:02; Start 11/25/17 at 09:00 Glucagon (Glucagon Inj) 1 mg UNSCH PRN OTHER HYPOGLYCEMIA-SEE COMMENTS; Start 11/25/17 at 00:00 Guaifenesin (Mucinex Er) 600 mg BID PO Last administered on 11/29/17at 09:01; Start 11/25/17 at 21:00 Guaifenesin (Robitussin Liq) 200 mg Q4H PRN PO Cough Last administered on at 06:10; Start 11/25/17 at 10:45 Heparin Sodium (Porcine) (Heparin Inj) 2,500 units UNSCH PRN IV APTT 25 TO 39 Last administered on 11/25/17at 05:56; Start 11/25/17 at 03:45; Stop 11/28/17 at 13:38; Status DC Heparin Sodium/ Dextrose 250 ml @ 8 mls/hr TITRATE PRN IV Coagulation Management Last administered on 11/28/17at 01:20; Start 11/24/17 at 21:45; Stop at 13:38; Status DC Insulin Aspart (NovoLOG SUPPLEMENTAL SCALE) 1 ACHS SLIDING SCALE SQ Last administered on 11/29/17at 09:04; Start 11/25/17 at 08:00 Insulin Detemir (Levemir Inj) 26 units HS SQ Last administered on 11/28/17at 21: 31; Start 11/25/17 at 21:00 Lactulose (Lactulose Liq) 30 ml DAILY PRN PO SEVERE CONSITIPATION; Start at 22:00 Magnesium Hydroxide (Milk Of Magnesia Liq) 30 ml Q12H PRN PO Mild constipation ; Start 11/24/17 at 22:00 Methylprednisolone Sodium Succinate (SoluMEDROL INJ) 40 mg ONCE ONCE IV PUSH Last administered on 11/26/17at 12:47; Start 11/26/17 at 10:30; Stop 11/26/17 at 10:34; Status DC Miscellaneous Information SPECIFIC LAB TO BE DRAWN:[facility] TROUGH DATE TO BE DR... ONCE ONCE .XX ; Start 11/29/17 at 07:45; Stop 11/29/17 at 07:46; Status DC Morphine Sulfate (Morphine Inj) 2 mg Q3H PRN IV PUSH Pain 6-10; Start 11/24/17 at 22:00 Nitroglycerin (Nitroglycerin 2% Oint) 0.5 inch Q6HR PRN TOPICAL CHEST PAIN; Start 11/24/17 at 22:00 Ondansetron HCl (Zofran Inj) 4 mg Q6H PRN IVP NAUSEA OR VOMITING Last administered on 11/28/17at 09:47; Start 11/24/17 at 22:00 Pantoprazole Sodium (Protonix) 20 mg DAILY PO Last administered on 11/29/17at 09 :02; Start 11/25/17 at 09:00 Pharmacy Profile Note 0 ml @ 0 mls/hr UNSCH OTHER ; Start 11/24/17 at 22:00 Piperacillin Sod/ Tazobactam Sod 50 ml @ 100 mls/hr ONCE ONCE IV Last administered on 11/24/17at 20:15; Start 11/24/17 at 20:15; Stop 11/24/17 at 20:44; Status DC Senna/Docusate Sodium (Huma-Colace) 1 tab BID PO Last administered on at 09:25; Start 11/25/17 at 09:00 Sennosides (Senokot) 17.2 mg Q12H PRN PO Moderate constipation; Start 11/24/17 at 22:00 Sertraline HCl (Zoloft) 50 mg DAILY PO Last administered on 11/29/17at 09:01; Start 11/25/17 at 09:00 Sodium Chloride (NS Flush) 2 ml BID IV FLUSH Last administered on 11/29/17at 09: 05; Start 11/25/17 at 09:00 Vancomycin HCl 500 mg/Sodium Chloride 100 ml @ 200 mls/hr NOW ONCE IV ; Start 11/24/17 at 22:45; Stop 11/24/17 at 23:14; Status DC Vancomycin HCl 1000 mg/Sodium Chloride 250 ml @ 250 mls/hr ONCE ONCE IV Last administered on 11/24/17at 20:15; Start 11/24/17 at 20:15; Stop 11/24/17 at 21:14; Status DC Vancomycin/Sodium Chloride 200 ml @ 200 mls/hr Q18H IV Last administered on at 08:18; Start 11/28/17 at 14:00 A/P Problem List: (1) Sepsis ICD Code: A41.9 - Sepsis, unspecified organism (2) PNA (pneumonia) ICD Code: J18.9 - Pneumonia, unspecified organism (3) NSTEMI (non-ST elevated myocardial infarction) ICD Code: I21.4 - Non-ST elevation (NSTEMI) myocardial infarction (4) DM (diabetes mellitus) ICD Code: E11.9 - Type 2 diabetes mellitus without complications Assessment and Plan A/P Community-acquired pneumonia acute hypercapnic respiratory failure COPD Continue oxygen as needed Continue vancomycin Continue Zosyn will deescalate the antibiotics soon- when the sputum culture is resulted. continue IV Solumedrol; continue to taper down. Follow CBC Continue breathing treatments as needed pulmonary consult appreciated will consult ST for swallow evaluation Possible NSTEMI possible fluid overload Potential elevation in troponin related to pneumonia Cardiology consulted and following conservative treatment for now no further work-up per cardiology. leukocytosis- improved. continue antibiotics- will monitor temps- Diabetes mellitus type 2 Follow blood sugars continue levemir Insulin sliding scale Diabetic diet DVT prophylaxis SCD's DNR status- per my discussion with the patient. Discharge Planning dc to SNF in am if stable. d/w the patient and Tootie Salcido MD Nov 29, 2017 09:20
[2017-11-29] MEDS ORDERED: POTASSIUM CHLORIDE 10 MEQ CONTROLLED RELEASE TAB PO ONE (10:00)
[2017-11-29] MEDS: CEFEPIME 2000 MG/NS 100 ML IV SCH ×4 (12:05→22:16)
[2017-11-29] MEDS: RESP: ACETYLCYSTEINE 20% 30 ML NEB NEB SCH ×3 (15:15→23:50)
--- NOTE | 2017-11-29 18:10 | ECHRPT ---
Indication: HEART FAILURE CONCLUSIONS Normal left ventricular size. Wall thickness is normal. The left ventricular systolic function is normal (EF 60%). The right ventricle is mildly dilated. The right ventricular systolic function is mildly decreased. The left atrial size is mildly dilated. The right atrial size is mildly dilated. Aortic valve sclerosis is present. There is trace tricuspid valve regurgitation. The estimated pulmonary arterial pressure is 42 mmHg. A right sided pleural effusion is present. BP: 124 / 66 HR: 98 Rhythm: Sinus MEASUREMENTS (Male / Female) Normal Values Technical Quality:Fair 2D ECHO LV Diastolic Diameter PLAX 4.2 cm 4.2 - 5.9 / 3.9 - 5.3 cm LV Systolic Diameter PLAX 2.6 cm IVS Diastolic Thickness 0.8 cm 0.6 - 1.0 / 0.6 - 0.9 cm LVPW Diastolic Thickness 0.8 cm 0.6 - 1.0 / 0.6 - 0.9 cm LV Relative Wall Thickness 0.4 RV Internal Dim ED PLAX 3.2 cm LVOT Diameter 1.8 cm Aortic Root Diameter 2.9 cm LA Systolic Diameter LX 2.9 cm 3.0 - 4.0 / 2.7 - 3.8 cm M-MODE AV Cusp Separation MM 1.9 cm DOPPLER AV Peak Velocity 127.0 cm/s AV Peak Gradient 6.5 mmHg AV Mean Gradient 3.0 mmHg AV Velocity Time Integral 24.2 cm LVOT Peak Velocity 72.9 cm/s LVOT Peak Gradient 2.1 mmHg LVOT Velocity Time Integral 15.7 cm AV Area Cont Eq vti 1.7 cm AV Area Cont Eq pk 1.5 cm Mitral E Point Velocity 90.8 cm/s Mitral A Point Velocity 121.0 cm/s Mitral E to A Ratio 0.8 LV E' Lateral Velocity 5.6 cm/s Mitral E to LV E' Lateral Ratio 16.3 LV E' Septal Velocity 5.7 cm/s Mitral E to LV E' Septal Ratio 16.1 TR Peak Velocity 284.0 cm/s TR Peak Gradient 32.3 mmHg Right Atrial Pressure 10.0 mmHg Pulmonary Artery Systolic Pressu 42.3 mmHg Right Ventricular Systolic Press 42.3 mmHg PV Peak Velocity 80.5 cm/s PV Peak Gradient 2.6 mmHg FINDINGS LEFT VENTRICLE Normal left ventricular size. Wall thickness is normal. The left ventricular systolic function is normal (EF 60%). RIGHT VENTRICLE The right ventricle is mildly dilated. The right ventricular systoilc function is mildly decreased. LEFT ATRIUM The left atrial size is mildly dilated. RIGHT ATRIUM The right atrial size is mildly dilated. ATRIAL SEPTUM No atrial level shunt is demonstrated by color flow Doppler interrogation. AORTA The aortic root and proximal ascending aorta are normal in size on limited imaging. MITRAL VALVE Structurally normal mitral valve. No mitral valve stenosis or regurgitation. AORTIC VALVE Aortic valve sclerosis is present. TRICUSPID VALVE There is trace tricuspid valve regurgitation. The estimated pulmonary arterial pressure is 42.3 mmHg. PULMONARY VALVE No pulmonary valve regurgitation or stenosis. VESSELS The inferior vena cava is normal in size. PERICARDIUM A right sided pleural effusion is present. Katia Johnson MD, FACC (Electronically Signed) Final Date:29 November 2017 18:09
--- NOTE | 2017-11-29 19:42 | HHI.PR ---
Subjective Remarks 82 YOWF with Pn,NSTMI,Dementia Breathing better Mild sob No CP No fever Looks better Objective Vital Signs Vital Signs Date Time Temp Pulse Resp B/P (MAP) Pulse Ox O2 Delivery O2 Flow Rate FiO2 11/29/17 19:28 92 Nasal Cannula 6.00 11/29/17 17:15 96 Non-Rebreather 12.00 11/29/17 17:00 90 11/29/17 16:56 100 50 11/29/17 16:00 87 11/29/17 15:25 93 Nasal Cannula 3.00 11/29/17 15:00 86 11/29/17 15:00 98.5 88 18 149/68 (95) 90 11/29/17 12:35 93 11/29/17 11:02 98.3 93 18 139/63 (88) 90 11/29/17 11:00 93 11/29/17 10:29 70 11/29/17 10:00 74 11/29/17 09:34 86 11/29/17 08:54 88 11/29/17 07:41 93 Nasal Cannula 5.00 11/29/17 07:31 93 Nasal Cannula 5.00 11/29/17 07:24 98.4 77 19 149/64 (92) 93 11/29/17 07:00 86 11/29/17 07:00 62 11/29/17 07:00 98.1 75 17 164/72 (102) 95 11/29/17 06:00 81 11/29/17 05:00 71 11/29/17 04:00 81 11/29/17 03:30 98.8 80 18 144/75 (98) 92 11/29/17 03:00 68 11/29/17 02:00 69 11/29/17 01:00 76 11/29/17 00:00 76 11/29/17 00:00 98.8 76 20 157/78 (104) 91 11/28/17 23:00 76 11/28/17 22:00 70 11/28/17 21:28 96 Nasal Cannula 5.00 11/28/17 21:00 66 11/28/17 20:00 99.1 85 20 141/65 (90) 92 11/28/17 20:00 92 Nasal Cannula 4.00 11/28/17 20:00 92 I/O 11/28/17 11/28/17 11/28/17 11/29/17 11/29/17 11/29/17 07:00 15:00 23:00 07:00 15:00 23:00 Intake Total 450 ml 480 ml 340 ml 300 ml 720 ml Output Total 1000 ml 300 ml 1100 ml 1000 ml Balance 450 ml -520 ml 40 ml -800 ml -280 ml Intake Oral 200 ml 480 ml 240 ml 720 ml IV Total 250 ml 100 ml 300 ml Output Urine Total 1000 ml 300 ml 1100 ml 1000 ml # Voids 2 3 1 # Bowel Movements 2 1 0 Result Diagram: 11/29/1760811/29/17608 Objective Remarks GENERAL: Elderly WF, NAD SKIN: Warm and dry. HEAD: Normocephalic. EYES: No scleral icterus. No injection or drainage. NECK: Supple, trachea midline. No JVD or lymphadenopathy. CARDIOVASCULAR: Regular rate and rhythm without murmurs, gallops, or rubs. RESPIRATORY: Breath sounds equal bilaterally. No accessory muscle use. GASTROINTESTINAL: Abdomen soft, non-tender, nondistended. MUSCULOSKELETAL: No cyanosis, or edema. BACK: Nontender without obvious deformity. No CVA tenderness. A/P Assessment and Plan Pneumonia Leucocytosis NSTMI DM Hypoxia Dementia PLAN: Cont Abx Aerosol nebs supplement 02 Monitor Aidan Krishnan MD Nov 29, 2017 19:42
[2017-11-29] MEDS: INSULIN DETEMIR 100 UNITS/ML VIAL SQ SCH (21:33)
[2017-11-30] VITALS (11 sets, daily range): BP systolic 136–163; BP diastolic 67–81; PULSE 60–91; RESP 18–20; TEMP 97.8–98.5; O2SAT 78–100
[2017-11-30] MEDS: VANCOMYCIN 1 GM/200 ML PREMIX IV SCH ×2 (01:31→19:52)
[2017-11-30] MEDS: RESP: ACETYLCYSTEINE 20% 30 ML NEB NEB SCH ×6 (03:55→23:51)
[2017-11-30] MEDS: RESP: ALBUTEROL 2.5 MG/IPRATROPIUM 0.5 MG NEB (SCH) NEB ×3 (03:55→11:15)
[2017-11-30 07:02] LABS: HEMATOCRIT 34.2 % (35.0-46.0); HEMOGLOBIN 11.7 GM/DL (11.6-15.3); MEAN CELL VOLUME 91.7 FL (80.0-100.0); MEAN CORPUSCULAR HEMOGLOBIN 31.3 PG (27.0-34.0); MEAN CORPUSCULAR HGB CONC 34.1 % (32.0-36.0); MEAN PLATELET VOLUME 7.8 FL (7.0-11.0); PLATELET COUNT 379 TH/MM3 (150-450); RED BLOOD COUNT 3.73 MIL/MM3 (4.00-5.30); WHITE BLOOD COUNT 13.6 TH/MM3 (4.0-11.0)
[2017-11-30] MEDS: methylPREDNISolone SOD SUCC 40 MG/1 ML VIAL IV PUSH SCH ×2 (08:49→19:53)
[2017-11-30] MEDS: GABAPENTIN 300 MG CAP PO SCH ×2 (08:49→19:53)
[2017-11-30] MEDS: PANTOPRAZOLE SOD 20 MG DELAYED RELEASE TAB PO SCH (08:49)
[2017-11-30] MEDS: DOCUSATE SODIUM 50 MG/SENNA 8.6 MG TAB PO SCH (08:50)
[2017-11-30] MEDS: SERTRALINE HCL 50 MG TAB PO SCH (08:50)
[2017-11-30] MEDS: guaiFENesin E.R. 600 MG TAB PO SCH ×2 (08:50→19:53)
[2017-11-30] MEDS: INSULIN ASPART SUPPLEMENTAL SCALE SQ SCH ×4 (08:52→22:05)
[2017-11-30] MEDS: SODIUM CHLORIDE 0.9% FLUSH 10 ML FLUSH IV FLUSH SCH ×2 (08:57→19:52)
[2017-11-30] MEDS: CEFEPIME 2000 MG/NS 100 ML IV SCH ×4 (08:57→22:05)
--- NOTE | 2017-11-30 14:23 | HHI.PR ---
Subjective Remarks Follow-up non-ST elevation [place]/respiratory failure 11/30/17-patient and examined, still on NRB with significant shortness of breath Objective Vitals Vital Signs Date Time Temp Pulse Resp B/P (MAP) Pulse Ox O2 Delivery O2 Flow Rate FiO2 11/30/17 12:12 97.9 70 18 151/67 (95) 100 11/30/17 08:12 98.1 75 18 136/81 (99) 95 11/30/17 07:50 78 11/30/17 04:00 98.1 74 20 156/70 (98) 99 11/30/17 04:00 Non-Rebreather 4.00 11/30/17 04:00 60 11/30/17 00:00 73 11/30/17 00:00 98.2 70 20 146/67 (93) 100 11/30/17 00:00 Non-Rebreather 4.00 11/29/17 20:50 98.9 87 23 142/65 (90) 94 11/29/17 20:00 Nasal Cannula 6.00 11/29/17 20:00 93 11/29/17 19:28 92 Nasal Cannula 6.00 11/29/17 18:25 Non-Rebreather 4.00 11/29/17 17:15 96 Non-Rebreather 12.00 11/29/17 17:00 90 11/29/17 16:56 100 50 11/29/17 16:00 87 11/29/17 15:25 93 Nasal Cannula 3.00 11/29/17 15:00 86 11/29/17 15:00 98.5 88 18 149/68 (95) 90 I/O 11/29/17 11/29/17 11/29/17 11/30/17 11/30/17 11/30/17 06:59 14:59 22:59 06:59 14:59 22:59 Intake Total 340 ml 300 ml 720 ml 300 ml Output Total 300 ml 1100 ml 1000 ml Balance 40 ml -800 ml -280 ml 300 ml Intake Oral 240 ml 720 ml IV Total 100 ml 300 ml 300 ml Output Urine Total 300 ml 1100 ml 1000 ml # Voids 1 # Bowel Movements 0 Result Diagram: 11/30/17 0435 11/29/17 0609 Imaging Last Impressions Chest X-Ray 11/28/17 0600 Signed Impressions: Service Date/Time: Tuesday, November 28, 2017 04:17 - CONCLUSION: Worsening appearance of the chest. Clay Franco MD Objective Remarks GENERAL: NAD SKIN: Warm and dry. HEAD: Normocephalic. EYES: No scleral icterus. No injection or drainage. NECK: Supple, trachea midline. No JVD or lymphadenopathy. CARDIOVASCULAR: Regular rate and rhythm without murmurs, gallops, or rubs. RESPIRATORY: Breath sounds decrease bilaterally. No accessory muscle use. GASTROINTESTINAL: Abdomen soft, non-tender, nondistended. MUSCULOSKELETAL: No cyanosis, or edema. BACK: Nontender without obvious deformity. No CVA tenderness. A/P Problem List: (1) Sepsis ICD Code: A41.9 - Sepsis, unspecified organism (2) PNA (pneumonia) ICD Code: J18.9 - Pneumonia, unspecified organism (3) NSTEMI (non-ST elevated myocardial infarction) ICD Code: I21.4 - Non-ST elevation (NSTEMI) myocardial infarction (4) DM (diabetes mellitus) ICD Code: E11.9 - Type 2 diabetes mellitus without complications Assessment and Plan 82-year-old female with Community-acquired pneumonia acute hypercapnic respiratory failure COPD Continue oxygen as needed Continue vancomycin, Cefepime continue IV Solu Medrol; continue to taper down. Continue breathing treatments as needed pulmonary consult appreciated Consider Hospice Possible NSTEMI possible fluid overload Potential elevation in troponin related to pneumonia Cardiology ff conservative treatment for now and no further work-up per cardiology. leukocytosis- continue antibiotics Diabetes mellitus type 2 Follow blood sugars continue Levemir Insulin sliding scale Diabetic diet Darian Cameron MD Nov 30, 2017 14:23
--- NOTE | 2017-11-30 15:10 | HHI.PR ---
Addendum to Inpatient Note Addendum Reason: Additional Documentation Additional Information Case discussed with patient's daughter and she is agreeable for hospice consultation Darian Cameron MD Nov 30, 2017 15:10
[2017-11-30] MEDS: RESP: ALBUTEROL 2.5 MG/3 ML NEB (PRN) NEB ×3 (15:17→23:51)
--- NOTE | 2017-11-30 20:50 | HHI.PR ---
Subjective Remarks 82 YOWF with Pn,NSTMI,Dementia Breathing better Mild sob No CP No fever takes off mask Objective Vital Signs Vital Signs Date Time Temp Pulse Resp B/P (MAP) Pulse Ox O2 Delivery O2 Flow Rate FiO2 11/30/17 20:09 Nasal Cannula 5.00 11/30/17 17:00 91 11/30/17 16:25 98.5 81 18 147/67 (93) 96 11/30/17 15:17 98 Non-Rebreather 15.00 11/30/17 12:12 97.9 70 18 151/67 (95) 100 11/30/17 12:00 60 11/30/17 08:12 98.1 75 18 136/81 (99) 95 11/30/17 08:00 Non-Rebreather 4.00 11/30/17 08:00 73 11/30/17 07:50 78 11/30/17 04:00 98.1 74 20 156/70 (98) 99 11/30/17 04:00 Non-Rebreather 4.00 11/30/17 04:00 60 11/30/17 00:00 73 11/30/17 00:00 98.2 70 20 146/67 (93) 100 11/30/17 00:00 Non-Rebreather 4.00 11/29/17 20:50 98.9 87 23 142/65 (90) 94 I/O 11/29/17 11/29/17 11/29/17 11/30/17 11/30/17 11/30/17 07:00 15:00 23:00 07:00 15:00 23:00 Intake Total 340 ml 300 ml 720 ml 300 ml 360 ml Output Total 300 ml 1100 ml 1000 ml Balance 40 ml -800 ml -280 ml 300 ml 360 ml Intake Oral 240 ml 720 ml 360 ml IV Total 100 ml 300 ml 300 ml Output Urine Total 300 ml 1100 ml 1000 ml # Voids 1 3 # Bowel Movements 0 0 Result Diagram: 11/30/17 0435 11/29/17 0609 Objective Remarks GENERAL: Elderly WF, NAD SKIN: Warm and dry. HEAD: Normocephalic. EYES: No scleral icterus. No injection or drainage. NECK: Supple, trachea midline. No JVD or lymphadenopathy. CARDIOVASCULAR: Regular rate and rhythm without murmurs, gallops, or rubs. RESPIRATORY: Breath sounds equal bilaterally. No accessory muscle use. GASTROINTESTINAL: Abdomen soft, non-tender, nondistended. MUSCULOSKELETAL: No cyanosis, or edema. BACK: Nontender without obvious deformity. No CVA tenderness. A/P Assessment and Plan Pneumonia Leucocytosis NSTMI DM Hypoxia Dementia PLAN: Cont Abx Aerosol nebs supplement 02 to keep sat >90% DW RT and RN at BS Monitor Aidan Krishnan MD Nov 30, 2017 20:50
[2017-11-30] MEDS: INSULIN DETEMIR 100 UNITS/ML VIAL SQ SCH (22:05)
[2017-12-01] VITALS: BP 144/63; PULSE 66; PULSE 68; RESP 18; TEMP 98.4; O2SAT 96
[2017-12-01] MEDS: RESP: ACETYLCYSTEINE 20% 30 ML NEB NEB SCH ×4 (03:36→15:58)
[2017-12-01] MEDS: RESP: ALBUTEROL 2.5 MG/3 ML NEB (PRN) NEB ×2 (03:36→11:45)
[2017-12-01 04:00] VITALS: BP 148/68; PULSE 66; PULSE 76; RESP 18; TEMP 97.3; O2SAT 93
[2017-12-01] MEDS: SODIUM CHLORIDE 0.9% FLUSH 10 ML FLUSH IV FLUSH SCH (07:40)
[2017-12-01 07:56] VITALS: O2SAT 91
[2017-12-01 08:00] VITALS: BP 149/66; PULSE 83; RESP 20; TEMP 98.4; O2SAT 89
[2017-12-01] MEDS: CEFEPIME 2000 MG/NS 100 ML IV SCH ×2 (08:07)
[2017-12-01] MEDS: PANTOPRAZOLE SOD 20 MG DELAYED RELEASE TAB PO SCH (08:08)
[2017-12-01] MEDS: guaiFENesin E.R. 600 MG TAB PO SCH (08:08)
[2017-12-01] MEDS: GABAPENTIN 300 MG CAP PO SCH (08:08)
[2017-12-01] MEDS: methylPREDNISolone SOD SUCC 40 MG/1 ML VIAL IV PUSH SCH (08:08)
[2017-12-01] MEDS: SERTRALINE HCL 50 MG TAB PO SCH (08:08)
[2017-12-01] MEDS: INSULIN ASPART SUPPLEMENTAL SCALE SQ SCH ×2 (08:09→12:00)
[2017-12-01 11:18] LABS: CREATININE 0.49 MG/DL (0.50-1.00)
[2017-12-01 12:00] VITALS: BP 170/67; PULSE 88; RESP 20; TEMP 98.1; O2SAT 92
--- NOTE | 2017-12-01 12:04 | HHI.PR ---
Subjective Remarks Follow-up non-ST elevation [place]/respiratory failure 11/30/17-patient and examined, still on NRB with significant shortness of breath 12/01/17-patient seen and examined, Hospice evaluated patient this AM, some improvement of SOB Objective Vitals Vital Signs Date Time Temp Pulse Resp B/P (MAP) Pulse Ox O2 Delivery O2 Flow Rate FiO2 12/01/17 08:00 98.4 83 20 149/66 (93) 89 12/01/17 07:56 91 Nasal Cannula 5.00 12/01/17 04:00 66 12/01/17 04:00 97.3 76 18 148/68 (94) 93 12/01/17 04:00 Nasal Cannula 5.00 Humidified 12/01/17 00:00 98.4 66 18 144/63 (90) 96 12/01/17 00:00 Nasal Cannula 5.00 Humidified 12/01/17 00:00 68 11/30/17 20:09 Nasal Cannula 5.00 11/30/17 20:00 94 Nasal Cannula 5.00 Humidified 11/30/17 20:00 87 11/30/17 20:00 97.8 75 18 163/77 (105) 93 11/30/17 17:00 91 11/30/17 16:25 98.5 81 18 147/67 (93) 96 11/30/17 15:17 98 Non-Rebreather 15.00 11/30/17 12:12 97.9 70 18 151/67 (95) 100 I/O 11/30/17 11/30/17 11/30/17 12/01/17 12/01/17 12/01/17 07:00 15:00 23:00 07:00 15:00 23:00 Intake Total 300 ml 660 ml Balance 300 ml 660 ml Intake Oral 360 ml IV Total 300 ml 300 ml # Voids 3 3 # Bowel Movements 0 Result Diagram: 11/30/17 0435 12/01/17 0728 Objective Remarks GENERAL: NAD SKIN: Warm and dry. HEAD: Normocephalic. EYES: No scleral icterus. No injection or drainage. NECK: Supple, trachea midline. No JVD or lymphadenopathy. CARDIOVASCULAR: Regular rate and rhythm without murmurs, gallops, or rubs. RESPIRATORY: Breath sounds decrease bilaterally. No accessory muscle use. GASTROINTESTINAL: Abdomen soft, non-tender, nondistended. MUSCULOSKELETAL: No cyanosis, or edema. BACK: Nontender without obvious deformity. No CVA tenderness. A/P Problem List: (1) Sepsis ICD Code: A41.9 - Sepsis, unspecified organism (2) PNA (pneumonia) ICD Code: J18.9 - Pneumonia, unspecified organism (3) NSTEMI (non-ST elevated myocardial infarction) ICD Code: I21.4 - Non-ST elevation (NSTEMI) myocardial infarction (4) DM (diabetes mellitus) ICD Code: E11.9 - Type 2 diabetes mellitus without complications Assessment and Plan 82-year-old female with Community-acquired pneumonia acute hypercapnic respiratory failure COPD Continue oxygen as needed Continue vancomycin, Cefepime continue IV Solu Medrol; continue to taper down. Continue breathing treatments as needed pulmonary consult appreciated Appreciate input from Hospice Possible NSTEMI possible fluid overload Potential elevation in troponin related to pneumonia Cardiology ff conservative treatment for now and no further work-up per cardiology. leukocytosis- continue antibiotics Diabetes mellitus type 2 Follow blood sugars continue Levemir Insulin sliding scale Diabetic diet Discharge Planning D/c to Hospice Darian Cameron MD Dec 01, 2017 12:04
--- NOTE | 2017-12-01 12:06 | HHI.DS ---
Discharge Summary Admission Date Nov 24, 2017 at 21:43 Discharge Date: Dec 01, 2017 Admitting Diagnosis CP NSTEMI (1) Sepsis ICD Code: A41.9 - Sepsis, unspecified organism (2) PNA (pneumonia) ICD Code: J18.9 - Pneumonia, unspecified organism (3) NSTEMI (non-ST elevated myocardial infarction) ICD Code: I21.4 - Non-ST elevation (NSTEMI) myocardial infarction (4) DM (diabetes mellitus) ICD Code: E11.9 - Type 2 diabetes mellitus without complications Procedures None Brief History - From Admission This is an 82-year-old female with a PMH of HTN, DM and Dementia who was sent to the ER from SNF secondary to generalized weakness, fever and confusion. Per patient, she's had progressive weakness/fatigue for 4-5 days w/ associated non- productive cough. Unsure if she's had fever, however SNF records indicate fever of 102.0. No c/o chest pain or SOB. On arrival, BP 135/62, HR 93, O2 sat 94% on RA. WBC 23.6. Na 129. 468. Troponin 0.25. INR 1.2. CXR patchy diffuse infiltrate of right mid to right lower lung suggestive of pneumonia. S/ p Vanc/Zosyn and started on Heparin gtt in ER. CBC/BMP: 11/30/17 0435 12/01/17 0728 Significant Findings Laboratory Tests Test 11/29/17 06:09 11/29/17 08:00 11/30/17 04:35 12/01/17 07:28 White Blood Count 11.5 TH/MM3 (4.0-11.0) 13.6 TH/MM3 (4.0-11.0) Red Blood Count 3.69 MIL/MM3 (4.00-5.30) 3.73 MIL/MM3 (4.00-5.30) Hematocrit 34.1 % (35.0-46.0) 34.2 % (35.0-46.0) Neutrophils (%) (Auto) 84.3 % (16.0-70.0) Neutrophils # (Auto) 9.7 TH/MM3 (1.8-7.7) Random Glucose 159 MG/DL (74-106) Calcium Level 8.3 MG/DL (8.5-10.1) Potassium Level 3.3 MEQ/L (3.5-5.1) Vancomycin Level Trough 11.4 MCG/ML (5.0-10.0) Creatinine 0.49 MG/DL (0.50-1.00) Imaging Last Impressions Chest X-Ray 11/28/17 0600 Signed Impressions: Service Date/Time: Tuesday, November 28, 2017 04:17 - CONCLUSION: Worsening appearance of the chest. Clay Franco MD PE at Discharge GENERAL: NAD SKIN: Warm and dry. HEAD: Normocephalic. EYES: No scleral icterus. No injection or drainage. NECK: Supple, trachea midline. No JVD or lymphadenopathy. CARDIOVASCULAR: Regular rate and rhythm without murmurs, gallops, or rubs. RESPIRATORY: Breath sounds decrease bilaterally. No accessory muscle use. GASTROINTESTINAL: Abdomen soft, non-tender, nondistended. MUSCULOSKELETAL: No cyanosis, or edema. BACK: Nontender without obvious deformity. No CVA tenderness. Hospital Course Prior to discharge to hospice, patient was treated for: Community-acquired pneumonia acute hypercapnic respiratory failure COPD Treated with oxygen as needed, vancomycin, Cefepime, IV Solu Medrol, breathing treatments as needed pulmonary consult appreciated Appreciate input from Hospice Possible NSTEMI possible fluid overload Potential elevation in troponin related to pneumonia Cardiology ff conservative treatment and no further work-up per cardiology. Diabetes mellitus type 2 Treated with Levemir,Insulin sliding scale Pt Condition on Discharge: Deteriorating Discharge Disposition: Hospice/Med Facility Discharge Time: > 30 minutes Discharge Instructions DIET: Follow Instructions for: Heart Healthy Diet Speech Therapy-Diet Recommends: Regular Activities you can perform: Regular-No Restrictions Darian Cameron MD Dec 01, 2017 12:06
[2017-12-01] MEDS: VANCOMYCIN 1 GM/200 ML PREMIX IV SCH (13:02)
[2017-12-02] MEDS ORDERED: VANCOMYCIN INJ 1,250 MG in SODIUM CHLOR 0.9% 250 ML INJ 250 ML IV SCH (08:00)
[2017-12-04] MEDS ORDERED: PHARMACY ORDERED LAB ONE (13:45)
== END 2017-12-01 16:32 | disposition hospice, inpatient (51) | DRG 871 ==
LOC: NEPE 19:01 → NEDA 21:43 → HCIS 23:25 → N04A 11-29 19:10
PROVIDERS: ADMIT Hospitalist; ATTEND Hospitalist
PROC: 5A09357 Assistance with Respiratory Ventilation, Less than 24 Consecutive Hours, Continuous Positive Airway Pressure (ICD-10-PCS; principal; 2017-11-26)
DX: A41.9 Sepsis, unspecified organism (principal); I21.4 Non-ST elevation (NSTEMI) myocardial infarction; J96.02 Acute respiratory failure with hypercapnia; J96.01 Acute respiratory failure with hypoxia; G93.40 Encephalopathy, unspecified; J18.1 Lobar pneumonia, unspecified organism; J44.0 Chronic obstructive pulmonary disease with (acute) lower respiratory infection; E87.2 Acidosis; E11.9 Type 2 diabetes mellitus without complications; I10 Essential (primary) hypertension; F03.90 Unspecified dementia, unspecified severity, without behavioral disturbance, psychotic disturbance, mood disturbance, and anxiety; Z79.4 Long term (current) use of insulin; F17.210 Nicotine dependence, cigarettes, uncomplicated; Z90.710 Acquired absence of both cervix and uterus; Z66 Do not resuscitate; E87.70 Fluid overload, unspecified
CPT/HCPCS: 36600; 71045; 71046; 80048; 80053; 80202; 82272; 82550; 82565; 82805; 82948; 83605; 83690; 84484; 85025; 85027; 85610; 85730; 87040; 87070; 87205; 87804; 93005; 93306; 94002; 94003; 94640; 94664; 96365; 96368; J0692; J1644; J1815; J1940; J2405; J2543; J2920; J3370; J7030; J7050; J7608; J7613